=== PATIENT | female | born 1950 | race Caucasian/White ===

== ENCOUNTER → 2017-12-06 10:35 | Outpatient (CLI) | payer MEDICARE, OTHER, SELFPAY ==
--- NOTE | 2017-12-06 10:39 | MM_ITS ---
MM Dig screening mamm BI w/CAD CAD Screening COMPARISON: Digital mammograms 11/21/2016 and 11/03/2015 INDICATION: There is a history of breast cancer in patient's mother diagnosed in her 50s TECHNIQUE: Standard CC and MLO images were obtained. R2 CAD reviewed. FINDINGS: Moderate heterogenic fibroglandular densities are seen in central portions of both breasts. Again noted are benign-appearing calcifications in the right breast. There is a stable tiny oval lesion in her quadrant left breast. There is minimal arterial calcification left breast. There are no suspicious microcalcifications. IMPRESSION: Moderate breast density with no suspicious lesion seen recommend yearly follow-up BI-RADS Category: 2 Benign Finding(s) RECOMMENDED FOLLOW-UP: 1YR - 1 YEAR FOLLOW-UP (A letter has been sent to the patient regarding results of the study.)
== END ==
PROVIDERS: Family Provider Nurse Practitioner Family; PCP Nurse Practitioner Family; Visit Provider Nurse Practitioner Obstetrics & Gynecology
DX: Z12.31 Encounter for screening mammogram for malignant neoplasm of breast (principal)
CPT/HCPCS: 77067

== ENCOUNTER → 2017-12-20 11:58 | Outpatient (CLI) | payer MEDICARE, OTHER, SELFPAY ==
[2017-12-20 12:08] LABS: Microscopic, Urine URINE MICROSCOPIC (MICROSCOPIC)
[2017-12-20 12:42] LABS: Basophils # 0.1 K/mm3 (0-0.2); Basophils % 0.6 % (0.1-2.0); Eosinophils # 0.2 K/mm3 (0.0-0.4); Eosinophils % 1.4 % (0.1-12.0); Hematocrit 43.9 % (37.0-47.0); Hemoglobin 14.3 g/dL (12.2-16.2); Lymphocytes # 3.1 K/mm3 (0.7-4.5); Lymphocytes % 29.6 K/mm3 (10-50); Mean Corpuscular HGB Conc 32.6 g/dL (31.8-35.4); Mean Corpuscular Hemoglobin 30.4 pg (27.0-31.2); Mean Corpuscular Volume 93.3 fl (81-99); Mean Platelet Volume 10.5 fl (7.4-10.4); Monocytes # 0.7 K/mm3 (0.1-1.0); Monocytes % 6.2 % (1.7-9.3); Neutrophils # 6.6 K/mm3 (1.8-7.8); Neutrophils % 62.2 % (37.0-80.0); Platelet Count 213 K/mm3 (142-424); Red Blood Count 4.71 M/mm3 (4.20-5.40); Red Cell Distribution Width 14.7 % (11.5-17.5); White Blood Count 10.6 K/mm3 (4.8-10.8)
[2017-12-20 12:48] LABS: Appearance,Urine CLEAR (Clear); Bilirubin,Urine Negative (Negative); Blood, Urine 1+ (Negative); Color,Urine YELLOW (Yellow); Glucose,Urine (UA) Negative (Negative); Ketones,Urine Negative (Negative); Leukocyte Esterase,Urine 2+ (Negative); Nitrate,Urine POSITIVE (Negative); Protein,Urine Negative (Negative); Urobilinogen,Urine 0.2 EU/dl (0.2)
[2017-12-20 12:58] LABS: Creatinine,Urine Random 39 mg/dL (20-320); Total Protein,Urine Random 30.6 mg/dL (0.0-11.9)
[2017-12-20 13:05] LABS: Bacteria,Urine 3+ /lpf; WBC,Urine 50-100 #/hpf (0-3)
[2017-12-20 13:06] LABS: Mucus,Urine 1+ /lpf; Squamous Epithelial Cell,Urine Occasional #/hpf (0-5)
[2017-12-20 13:54] LABS: Albumin Level 4.2 gm/dL (3.4-5.0); Anion Gap 18.5 mEq/L (5-15); Blood Urea Nitrogen 16 mg/dL (7-18); Calcium 9.2 mg/dL (8.5-10.1); Carbon Dioxide 24 mmol/L (21.0-32.0); Chloride 98 mmol/L (98-107); Creatinine,Serum 0.96 mg/dL (0.55-1.02); Estimated Glomerular Filt Rate 58 ml/min (>60); GFR (African American) 70 ML/MIN (>60); Glucose 209 mg/dL (74-106); Phosphorous 3.7 mg/dL (2.4-4.9); Potassium 4.5 mmoL/L (3.5-5.1); Sodium 136 mmol/L (136-145)
[2017-12-21 18:27] LABS: Parathyroid Hormone Intact 56 pg/mL (15-65); Vitamin D 25 Hydroxy 11.5 ng/mL (30.0-100.0)
== END ==
PROVIDERS: PCP Nurse Practitioner Family; Visit Provider Internal Medicine Nephrology
DX: Z87.448 Personal history of other diseases of urinary system (principal); R82.90 Unspecified abnormal findings in urine
CPT/HCPCS: 36415; 80069; 81001; 82570; 82652; 83970; 84155; 85025; 87086; 87088; 87186

== ENCOUNTER → 2017-12-27 12:55 | Outpatient (POV) | payer MEDICARE, OTHER, SELFPAY | PROVIDERS: Family Provider Nurse Practitioner Family; PCP Nurse Practitioner Family; Visit Provider Internal Medicine Nephrology | DX: Z00.00 Encounter for general adult medical examination without abnormal findings (principal) ==

== ENCOUNTER → 2018-01-08 09:25 | Outpatient (CLI) | payer MEDICARE, OTHER, SELFPAY ==
--- NOTE | 2018-01-08 09:33 | US_ITS ---
US abdomen complete HISTORY: Abdominal pain and swelling ITS.REASON: ABDOMINAL PAIN,ACUTE KIDNEY INJURY ORDERING PHYSICIAN: Haim Walter PATIENT AGE: 67 years COMPARISON: None FINDINGS: PANCREAS:Unremarkable. No obvious mass or abnormal fluid collection. No ductal dilatation LIVER:Mild fatty liver. No focal liver lesion or biliary dilatation. There is appropriate direction of blood flow within the portal vein with no evidence of portal vein dilatation. RIGHT KIDNEY:Mild cortical thinning superiorly. No hydronephrosis LEFT KIDNEY:2 cm left renal cyst otherwise negative. Left kidney GALLBLADDER:Status post cholecystectomy. No ductal dilatation AORTA:No evidence of aneurysmal dilatation. SPLEEN:Upper limits of normal in size at 13 cm ASCITES:None demonstrated. IMPRESSION: 1. Fatty liver. 2. Mild right renal cortical thinning with small left renal cyst. 3. Borderline splenomegaly
== END ==
PROVIDERS: Family Provider Nurse Practitioner Family; PCP Nurse Practitioner Family; Visit Provider Internal Medicine Nephrology
DX: R19.8 Other specified symptoms and signs involving the digestive system and abdomen (principal)
CPT/HCPCS: 76700

== ENCOUNTER → 2018-04-30 08:43 | Outpatient (REF) | payer MEDICARE, OTHER, SELFPAY ==
[2018-04-30 13:31] LABS: Basophils # 0.1 K/mm3 (0-0.2); Basophils % 0.8 % (0.1-2.0); Eosinophils # 0.1 K/mm3 (0.0-0.4); Eosinophils % 1.8 % (0.1-12.0); Hematocrit 46.7 % (37.0-47.0); Hemoglobin 14.6 g/dL (12.2-16.2); Lymphocytes # 2.5 K/mm3 (0.7-4.5); Lymphocytes % 35.6 K/mm3 (10-50); Mean Corpuscular HGB Conc 31.3 g/dL (31.8-35.4); Mean Corpuscular Hemoglobin 29.3 pg (27.0-31.2); Mean Corpuscular Volume 93.7 fl (81-99); Mean Platelet Volume 9.2 fl (7.4-10.4); Monocytes # 0.5 K/mm3 (0.1-1.0); Monocytes % 6.5 % (1.7-9.3); Neutrophils # 3.9 K/mm3 (1.8-7.8); Neutrophils % 55.4 % (37.0-80.0); Platelet Count 235 K/mm3 (142-424); Red Blood Count 4.98 M/mm3 (4.20-5.40); Red Cell Distribution Width 14.6 % (11.5-17.5)
[2018-04-30 14:06] LABS: Alanine Aminotransferase 26 U/L (12-78); Albumin Level 4.3 gm/dL (3.4-5.0); Albumin/Globulin Ratio 1.2 (1.1-1.8); Alkaline Phosphatase 105 U/L (46-116); Anion Gap 14.5 mEq/L (5-15); Aspartate Amino Transferase 20 U/L (15-37); Bilirubin,Total 0.4 mg/dL (0.2-1.0); Blood Urea Nitrogen 16 mg/dL (7-18); Calcium 9.6 mg/dL (8.5-10.1); Carbon Dioxide 27 mmol/L (21.0-32.0); Chloride 100 mmol/L (98-107); Chol/HDL Ratio 10.8 (1-3.5); Cholesterol 432 mg/dL (140-200); Creatinine,Serum 1.01 mg/dL (0.55-1.02); Estimated Glomerular Filt Rate 55 ml/min (>60); Free T4 (Free Thyroxine) 1.04 ng/dl (0.76-1.46); GFR (African American) 66 ML/MIN (>60); Globulin 3.6 gm/dl (1.3-3.2); Glucose 248 mg/dL (74-106); HDL Cholesterol 40 mg/dL (29-89); Potassium 4.5 mmoL/L (3.5-5.1); Sodium 137 mmol/L (136-145); Thyroid Stimulating Hormone 2.35 uIU/ml (0.358-3.740); Total Protein,Serum 7.9 gm/dL (6.4-8.2)
[2018-04-30 14:08] LABS: Triglycerides 935 mg/dL (30-200)
[2018-04-30 15:47] LABS: Hemoglobin A1C 7.7 % (0.0-7.0)
[2018-05-01 11:22] LABS: Creatinine, Urine 26.5 mg/dL (Not Estab.)
[2018-05-02 06:29] LABS: Vitamin D 25 Hydroxy 11.2 ng/mL (30.0-100.0)
== END ==
LOC: LAB 08:43
PROVIDERS: Visit Provider Nurse Practitioner Family
DX: E11.9 Type 2 diabetes mellitus without complications (principal); R53.83 Other fatigue
CPT/HCPCS: 80053; 80061; 82043; 82570; 82652; 83036; 84439; 84443; 85025

== ENCOUNTER → 2018-06-24 12:31 | Outpatient (CLI) | payer MEDICARE, OTHER, SELFPAY ==
[2018-06-24 12:38] LABS: Microscopic, Urine URINE MICROSCOPIC (MICROSCOPIC)
[2018-06-24 12:52] LABS: Basophils # 0.1 K/mm3 (0-0.2); Basophils % 0.5 % (0.1-2.0); Eosinophils # 0.3 K/mm3 (0.0-0.4); Eosinophils % 2.8 % (0.1-12.0); Hematocrit 39.1 % (37.0-47.0); Hemoglobin 12.9 g/dL (12.2-16.2); Mean Corpuscular HGB Conc 32.9 g/dL (31.8-35.4); Mean Corpuscular Hemoglobin 30.4 pg (27.0-31.2); Mean Corpuscular Volume 92.4 fl (81-99); Mean Platelet Volume 7.5 fl (7.4-10.4); Monocytes # 0.6 K/mm3 (0.1-1.0); Monocytes % 6.2 % (1.7-9.3); Neutrophils # 5.2 K/mm3 (1.8-7.8); Neutrophils % 57.6 % (37.0-80.0); Platelet Count 287 K/mm3 (142-424); Red Blood Count 4.24 M/mm3 (4.20-5.40); Red Cell Distribution Width 15.4 % (11.5-17.5)
[2018-06-24 13:11] LABS: Appearance,Urine CLOUDY (Clear); Bilirubin,Urine Negative (Negative); Blood, Urine TRACE-L (Negative); Color,Urine YELLOW (Yellow); Glucose,Urine (UA) Negative (Negative); Ketones,Urine Negative (Negative); Leukocyte Esterase,Urine 3+ (Negative); Nitrate,Urine POSITIVE (Negative); Protein,Urine Negative (Negative); Specific Gravity, Urine <= 1.005 (1.005-1.030); Urobilinogen,Urine 0.2 EU/dl (0.2)
[2018-06-24 13:17] LABS: Bacteria,Urine 4+ /lpf; Squamous Epithelial Cell,Urine Occasional #/hpf (0-5); WBC,Urine 20-50 #/hpf (0-3)
[2018-06-24 13:59] LABS: Albumin Level 4.2 gm/dL (3.4-5.0); Anion Gap 15.8 mEq/L (5-15); Blood Urea Nitrogen 18 mg/dL (7-18); Carbon Dioxide 27 mmol/L (21.0-32.0); Chloride 102 mmol/L (98-107); Creatinine,Serum 1.13 mg/dL (0.55-1.02); Estimated Glomerular Filt Rate 48 ml/min (>60); GFR (African American) 58 ML/MIN (>60); Glucose 147 mg/dL (74-106); Phosphorous 4.8 mg/dL (2.4-4.9); Potassium 4.8 mmoL/L (3.5-5.1); Sodium 140 mmol/L (136-145); Uric Acid 3.3 mg/dL (2.6-7.2)
[2018-06-24 14:12] LABS: Creatinine,Urine Random 21 mg/dL (20-320); Total Protein,Urine Random 17.5 mg/dL (0.0-11.9)
[2018-06-26 16:50] LABS: Vitamin D 25 Hydroxy 29.1 ng/mL (30.0-100.0)
== END ==
PROVIDERS: Visit Provider Internal Medicine Nephrology
DX: N17.9 Acute kidney failure, unspecified (principal); N18.2 Chronic kidney disease, stage 2 (mild); R82.90 Unspecified abnormal findings in urine
CPT/HCPCS: 36415; 80069; 81001; 82570; 82652; 84155; 84550; 85025; 87086; 87088; 87186

== ENCOUNTER → 2018-06-27 13:13 | Outpatient (POV) | payer MEDICARE, OTHER, SELFPAY | PROVIDERS: Family Provider Nurse Practitioner Family; PCP Nurse Practitioner Family; Visit Provider Internal Medicine Nephrology | DX: Z00.00 Encounter for general adult medical examination without abnormal findings (principal) ==

== ENCOUNTER → 2018-08-23 10:57 | Outpatient (POV) | payer MEDICARE, OTHER, SELFPAY | PROVIDERS: Visit Provider Podiatrist | DX: Z00.00 Encounter for general adult medical examination without abnormal findings (principal) ==

== ENCOUNTER → 2018-11-14 13:37 | Outpatient (CLI) | payer MEDICARE, OTHER, SELFPAY ==
[2018-11-14 14:46] LABS: Alanine Aminotransferase 20 U/L (12-78); Albumin Level 4.2 gm/dL (3.4-5.0); Albumin/Globulin Ratio 1.2 (1.1-1.8); Alkaline Phosphatase 95 U/L (46-116); Anion Gap 17.3 mEq/L (5-15); Aspartate Amino Transferase 4 U/L (15-37); Bilirubin,Total 0.4 mg/dL (0.2-1.0); Blood Urea Nitrogen 19 mg/dL (7-18); Calcium 9.3 mg/dL (8.5-10.1); Carbon Dioxide 23 mmol/L (21.0-32.0); Chloride 96 mmol/L (98-107); Cholesterol 419 mg/dL (140-200); Creatinine,Serum 0.94 mg/dL (0.55-1.02); Estimated Glomerular Filt Rate 59 ml/min (>60); Free T4 (Free Thyroxine) 1.12 ng/dl (0.76-1.46); GFR (African American) 72 ML/MIN (>60); Globulin 3.6 gm/dl (1.3-3.2); Glucose 298 mg/dL (74-106); HDL Cholesterol 42 mg/dL (29-89); Potassium 4.3 mmoL/L (3.5-5.1); Sodium 132 mmol/L (136-145); Thyroid Stimulating Hormone 0.85 uIU/ml (0.358-3.740); Total Protein,Serum 7.8 gm/dL (6.4-8.2)
[2018-11-14 14:50] LABS: Triglycerides 992 mg/dL (30-200)
[2018-11-14 16:12] LABS: Basophils # 0.1 K/mm3 (0-0.2); Basophils % 0.8 % (0.1-2.0); Eosinophils # 0.1 K/mm3 (0.0-0.4); Hematocrit 44.7 % (37.0-47.0); Hemoglobin 14.5 g/dL (12.2-16.2); Lymphocytes # 3.1 K/mm3 (0.7-4.5); Lymphocytes % 36.6 % (10-50); Mean Corpuscular HGB Conc 32.5 g/dL (31.8-35.4); Mean Corpuscular Hemoglobin 30.2 pg (27.0-31.2); Mean Corpuscular Volume 92.9 fl (81-99); Mean Platelet Volume 10.7 fl (7.4-10.4); Monocytes # 0.6 K/mm3 (0.1-1.0); Monocytes % 6.8 % (1.7-9.3); Neutrophils # 4.7 K/mm3 (1.8-7.8); Neutrophils % 54.8 % (37.0-80.0); Platelet Count 239 K/mm3 (142-424); Red Blood Count 4.81 M/mm3 (4.20-5.40); Red Cell Distribution Width 14.3 % (11.5-17.5); White Blood Count 8.5 K/mm3 (4.8-10.8)
[2018-11-14 19:42] LABS: Hemoglobin A1C 10.3 % (0.0-7.0)
== END ==
PROVIDERS: Visit Provider Nurse Practitioner Family
DX: E11.9 Type 2 diabetes mellitus without complications (principal)
CPT/HCPCS: 80053; 80061; 83036; 84439; 84443; 85025

== ENCOUNTER → 2018-12-12 09:10 | Outpatient (CLI) | payer MEDICARE, OTHER, SELFPAY ==
--- NOTE | 2018-12-12 09:14 | MM_ITS ---
MM Dig screening mamm BI w/CAD CAD Screening COMPARISON: Digital mammograms with CAD 12/06/2017 and 11/21/2016 INDICATION: There is a history of breast cancer patient's mother diagnosed at age 50 TECHNIQUE: Standard CC and MLO images were obtained. R2 CAD reviewed. FINDINGS: Moderate diffuse somewhat heterogenic fibroglandular densities are seen in the central portions of both breasts there are few scattered benign-appearing calcifications in the right breast and there is minimal arterial calcification in each breast. There is no suspicious lesion and there are no suspicious microcalcifications. IMPRESSION: Moderate diffuse breast density with no suspicious lesion seen BI-RADS Category: 2 Benign Finding(s) RECOMMENDED FOLLOW-UP: 1YR - 1 YEAR FOLLOW-UP (A letter has been sent to the patient regarding results of the study.)
== END ==
PROVIDERS: PCP Nurse Practitioner Family; Visit Provider Nurse Practitioner Obstetrics & Gynecology
DX: Z12.31 Encounter for screening mammogram for malignant neoplasm of breast (principal)
CPT/HCPCS: 77067

== ENCOUNTER → 2018-12-30 10:10 | Outpatient (CLI) | payer MEDICARE, OTHER, SELFPAY ==
[2018-12-30 10:15] LABS: Microscopic, Urine URINE MICROSCOPIC (MICROSCOPIC)
[2018-12-30 10:32] LABS: Basophils % 0.5 % (0.1-2.0); Eosinophils # 0.1 K/mm3 (0.0-0.4); Eosinophils % 1.1 % (0.1-12.0); Hematocrit 43.2 % (37.0-47.0); Hemoglobin 14.2 g/dL (12.2-16.2); Lymphocytes # 3.1 K/mm3 (0.7-4.5); Lymphocytes % 37.1 % (10-50); Mean Corpuscular HGB Conc 32.9 g/dL (31.8-35.4); Mean Corpuscular Hemoglobin 30.1 pg (27.0-31.2); Mean Corpuscular Volume 91.5 fl (81-99); Mean Platelet Volume 7.8 fl (7.4-10.4); Monocytes # 0.4 K/mm3 (0.1-1.0); Monocytes % 5.3 % (1.7-9.3); Neutrophils # 4.6 K/mm3 (1.8-7.8); Platelet Count 246 K/mm3 (142-424); Red Blood Count 4.72 M/mm3 (4.20-5.40); Red Cell Distribution Width 14.1 % (11.5-17.5); White Blood Count 8.2 K/mm3 (4.8-10.8)
[2018-12-30 10:42] LABS: Appearance,Urine SL CLOUDY (Clear); Bilirubin,Urine Negative (Negative); Blood, Urine TRACE-I (Negative); Color,Urine YELLOW (Yellow); Glucose,Urine (UA) Negative (Negative); Ketones,Urine Negative (Negative); Leukocyte Esterase,Urine 1+ (Negative); Nitrate,Urine POSITIVE (Negative); PH,Urine 5.5 (5.0-8.5); Protein,Urine Negative (Negative); Urobilinogen,Urine 0.2 EU/dl (0.2)
[2018-12-30 10:48] LABS: Creatinine,Urine Random 34 mg/dL (20-320); Total Protein,Urine Random 14.4 mg/dL (0.0-11.9); WBC,Urine 20-50 #/hpf (0-3)
[2018-12-30 10:49] LABS: Bacteria,Urine 4+ /lpf; Squamous Epithelial Cell,Urine Occasional #/hpf (0-5)
[2018-12-30 11:36] LABS: Blood Urea Nitrogen 14 mg/dL (7-18); Calcium 9.6 mg/dL (8.5-10.1); Carbon Dioxide 24 mmol/L (21.0-32.0); Chloride 98 mmol/L (98-107); Creatinine,Serum 1.03 mg/dL (0.55-1.02); Estimated Glomerular Filt Rate 53 ml/min (>60); GFR (African American) 64 ML/MIN (>60); Glucose 211 mg/dL (74-106); Phosphorous 3.9 mg/dL (2.4-4.9); Sodium 136 mmol/L (136-145)
== END ==
PROVIDERS: Visit Provider Internal Medicine Nephrology
DX: N18.2 Chronic kidney disease, stage 2 (mild) (principal); R82.90 Unspecified abnormal findings in urine
CPT/HCPCS: 36415; 80069; 81001; 82570; 84155; 85025; 87086; 87088; 87186

== ENCOUNTER → 2019-01-13 13:28 | Outpatient (POV) | payer MEDICARE, OTHER, SELFPAY | PROVIDERS: Visit Provider Internal Medicine Nephrology | DX: Z00.00 Encounter for general adult medical examination without abnormal findings (principal) ==

== ENCOUNTER 2019-03-17 16:58 | Observation (INO) ==
--- NOTE | 2019-03-17 17:30 | Emergency Department Note ---
ED Disposition Clinical Impression: UTI (urinary tract infection) Disposition: Admitted as Observation Condition on Discharge: Good Time of Disposition: 18:49 - Critical Care Critical Care Time: No Attestation: On 03/17/19, the high probability of a clinically significant, sudden or life threatening deterioration of the following system(s) required my full and direct attention, intervention and personal management. The time I documented below is in addition to time spent performing reported procedures but includes the following listed in this critical care notation. Medical Decision Making - Medical Records Medical records reviewed: Yes: I reviewed the patient's medical records. - Kev Inquiry Pt receiving controlled substance: No Kev was queried for this patient: No Vital Signs: 03/17/19 17:04 03/17/19 17:59 03/17/19 18:00 Temperature 97.9 F Temperature Source Oral Pulse Rate Pulse Rate [Right Brachial] 94 H 83 83 Respiratory Rate 24 18 16 Blood Pressure Blood Pressure [Right Arm] 192/98 H 157/70 H 150/77 H Blood Pressure Mean [Right Arm] 129 99 101 Blood Pressure Source Blood Pressure Source [Right Arm] Automatic Cuff Automatic Cuff Automatic Cuff Blood Pressure Position Blood Pressure Position [Right Arm] Sitting Supine Supine 02 Sat by Pulse Oximetry 98 96 96 Oxygen Delivery Method Room Air Room Air Room Air 03/17/19 18:39 Temperature 97.8 F Temperature Source Temporal Artery Scan Pulse Rate 79 Pulse Rate [Right Brachial] Respiratory Rate 24 Blood Pressure 169/86 H Blood Pressure [Right Arm] Blood Pressure Mean [Right Arm] Blood Pressure Source Automatic Cuff Blood Pressure Source [Right Arm] Blood Pressure Position Sitting Blood Pressure Position [Right Arm] 02 Sat by Pulse Oximetry Oxygen Delivery Method Room Air - Lab Data Lab results reviewed: Yes: I reviewed the patient's lab results. Lab Results 03/17/19 17:20: WBC 10.5, RBC 4.72, Hgb 13.8, Hct 41.5, MCV 88.0, MCH 29.3, MCHC 33.3, RDW 13.6, Plt Count 295, MPV 7.9, Neut % (Auto) 68.7, Lymph % (Auto) 24.4, [place] % (Auto) 6.0, Eos % (Auto) 0.6, Baso % (Auto) 0.2, Neut # (Auto) 7.2, Lymph # (Auto) 2.6, [place] # (Auto) 0.6, Eos # (Auto) 0.1, Baso # (Auto) 0.0 03/17/19 17:20: Sodium 128 L, Potassium 4.3, Chloride 91 L, Carbon Dioxide 24, Anion Gap 17.3 H, BUN 14, Creatinine 1.10 H, Estimated Creat Clear 49, Estimated GFR 49 L, Est GFR ( Amer) 60, Glucose 289 H, Calcium 9.7, Total Bilirubin 0.5, AST 5 L, ALT 15, Alkaline Phosphatase 108, Troponin I < 0.02, Total Protein 8.7 H, Albumin 3.8, Globulin 4.9 H, Albumin/Globulin Ratio 0.8 L 03/17/19 17:20: Lactate 0.9 03/17/19 17:30: Urine Color Yellow, Urine Appearance Clear, Urine pH 5.0, Ur Specific [place] 1.015, Urine Protein Negative, Urine Glucose (UA) 1+, Urine Ketones Negative, Urine Blood 1+, Urine Nitrate Positive, Urine Bilirubin Negative, Urine Urobilinogen 0.2, Ur Leukocyte Esterase 1+ A, Urine WBC 3-5, Ur Squamous Epith Cells Occasional, Urine Mucus 1+ Result diagrams: 03/17/19 17:20 03/17/19 17:20 Orders (Tests/Meds): ED MEDICATIONS Generic Name Dose Route Start Last Admin Trade Name Walt PRN Reason Stop Dose Admin Ertapenem 1 gm/ Sodium 50 mls @ 100 mls/hr 03/17/19 18:15 03/17/19 18:11 Chloride IV 03/31/19 18:14 100 mls/hr Q24H ROSA Administration Protocol ORDERS Category Date Time Status XR chest portable Stat Exams 03/17/19 17:12 Taken Blood Culture Stat Micro 03/17/19 17:20 Received - Physician Consults Physician Consulted: yvon Time: 18:02 Reason -: Admission General Adult HPI - General Chief complaint: Abdominal Pain Stated complaint: Poss kidney infection Time Seen by Provider: 03/17/19 17:28 Mode of Arrival: Ambulatory Source of Information: Patient Limitations: No Limitations Description of Symptoms (Recalled from ER Triage Doc. by RN): sent by for ev al for uroseptic work up - History of Present Illness HPI narrative: SAw Dr. Perez, got sick today. found to have UTI, sent to hospital because of history of EBSL E. Coli cystitis - Related Data Home Medications Medication Instructions Recorded Confirmed cyanocobalamin (vit B-12) 1,000 1,000 mcg PO ONCE 06/11/18 03/17/19 mcg tablet Amlodipine Besylate [Norvasc 5mg 10 mg PO DAILY 03/17/19 tablet] Aspirin [Low Dose Aspirin EC] 81 mg PO DAILY 03/17/19 Blood Sugar Diagnostic [Premier 0 1000units .ROUTE .MEDSUPPLY 03/17/19 Test Strip] Blood-Glucose Meter [Contour Link] 1 tab .ROUTE .MEDSUPPLY 03/17/19 Cholecalciferol (Vitamin D3) 5,000 unit PO DAILY 03/17/19 [Vitamin D3] Ergocalciferol (Vitamin D2) 50,000 unit PO QWEEK 03/17/19 [Drisdol] Linagliptin [Tradjenta] 5 mg PO DAILY 03/17/19 Lisinopril [Lisinopril 40mg Tablet] 40 mg PO QDAY 03/17/19 Metformin HCl [Glucophage] 500 mg PO DAILY 03/17/19 Metoprolol Succinate 25 mg PO DAILY 03/17/19 Simvastatin 5 mg PO QHS 03/17/19 Allergies Allergy/AdvReac Type Severity Reaction Status Date / Time albuterol [ALBUTEROL] Allergy Unknown Verified 03/17/19 16:25 enalapril [ENALAPRIL] Allergy Unknown Verified 03/17/19 16:25 fluticasone [FLUTICASONE] Allergy Unknown Verified 03/17/19 16:25 lorazepam [LORAZEPAM] Allergy Unknown Verified 03/17/19 16:25 propranolol [PROPRANOLOL] Allergy Unknown Verified 03/17/19 16:25 [facility] History - Hepatitis A Screen Drug use history?: No High risk sexual behaviors?: No History of sexually transmitted infection?: No Currently employed?: No Childcare worker?: No Do you have indoor plumbing?: Yes Do you have electricity?: Yes Attestation statement:: This patient has been screened for Hepatitis A risk factors. I have reviewed the patient's past medical history: Yes Medical History: Reports:: Diabetes Mellitus Type 2, Hypertension Other Medical History: Reports: Arthritis Other Surgeries: Yes: Cholecystectomy, Colonoscopy, Tubal Ligation Amputation: No Fractures: No Comment: bladder surgery (slings) - Social History Educational Level: Completed High School Smoking Status: Current every day smoker Tobacco Type: cigarettes # Packs/Day (cigarettes): 2 Alcohol Intake: never Alcohol Intake Frequency:: other Substance Use Type: denies use Occupational Status: retired Housing: house Household Members: spouse - Psychiatric History Expresses thoughts of harming self/others: None Suicide Plan Description: No Plan Family Hx:: Cancer, Heart Attack ROS Obtained: Yes All systems reviewed & no additional complaints - Constitutional Constitutional: Reports chills, Reports malaise - Eyes Eyes: Denies system reviewed and no additional complaints, except as docu, Denies change in vision - ENT Ears, Nose, Mouth, and Throat: Denies sinus pressure, Denies sore throat, Denies vertigo/dizziness - Cardiovascular Cardiovascular: Denies chest pain at rest - Respiratory Respiratory: No chest congestion, No cough, No dyspnea, No dyspnea on exertion - Gastrointestinal Gastrointestingal: Reports: system reviewed and no additional complaints, except as docu, abdominal pain. Denies: vomiting - Genitourinary Female Genitourinary: Reports flank pain - Musculoskeletal Musculoskeletal: Denies joint stiffness, Denies joint swelling, Denies muscle weakness - Integumentary/Breasts Skin/Breast: Denies rash, Denies skin pain - Neurologic Neurologic: Denies abnormal gait, Denies abnormal speech, Denies confusion - Hematologic/Lymphatic Henatologic/Lymphatic: Denies easy bleeding, Denies easy bruising Physical Exam - General General appearance: alert, in no apparent distress - Head Head exam: atraumatic, normocephalic, normal inspection - Eye Eye exam: Present: normal appearance, PERRL, EOMI - ENT ENT exam: Present: normal exam, normal oropharynx, mucous membranes moist, TM's normal bilaterally, normal external ear exam - Neck Neck exam: Present: normal inspection, full ROM, trachea midline. Absent: meningismus, lymphadenopathy - Respiratory Respiratory exam: Present: normal lung sounds bilaterally. Absent: respiratory distress - Cardiovascular Cardiovascular exam: Present: regular rate, normal rhythm. Absent: JVD - Abdominal Exam Abdominal exam: Present: soft, normal bowel sounds. Absent: distention, tenderness, guarding - Extremities Exam Extremities exam: Present: normal inspection, full ROM, normal capillary refill. Absent: calf tenderness - Back Exam Back exam: Present: normal inspection. Absent: tenderness - Neurological Exam Neurological exam: Present: alert, oriented X3 - Psychiatric Psychiatric exam: Present: normal affect, normal mood - Skin Skin exam: Present: warm, dry, intact, normal color
[2019-03-17 17:47] LABS: Alanine Aminotransferase 15 U/L (12-78); Albumin Level 3.8 gm/dL (3.4-5.0); Albumin/Globulin Ratio 0.8 (1.1-1.8); Alkaline Phosphatase 108 U/L (46-116); Anion Gap 17.3 mEq/L (5-15); Aspartate Amino Transferase 5 U/L (15-37); Bilirubin,Total 0.5 mg/dL (0.2-1.0); Blood Urea Nitrogen 14 mg/dL (7-18); Calcium 9.7 mg/dL (8.5-10.1); Carbon Dioxide 24 mmol/L (21.0-32.0); Chloride 91 mmol/L (98-107); Globulin 4.9 gm/dl (1.3-3.2); Glucose 289 mg/dL (74-106); Potassium 4.3 mmoL/L (3.5-5.1); Sodium 128 mmol/L (136-145); Total Protein,Serum 8.7 gm/dL (6.4-8.2)
[2019-03-17 17:49] LABS: Microscopic, Urine URINE MICROSCOPIC (MICROSCOPIC)
[2019-03-17 17:50] LABS: Basophils % 0.2 % (0.1-2.0); Eosinophils # 0.1 K/mm3 (0.0-0.4); Eosinophils % 0.6 % (0.1-12.0); Hematocrit 41.5 % (37.0-47.0); Hemoglobin 13.8 g/dL (12.2-16.2); Lymphocytes # 2.6 K/mm3 (0.7-4.5); Lymphocytes % 24.4 % (10-50); Mean Corpuscular HGB Conc 33.3 g/dL (31.8-35.4); Mean Corpuscular Hemoglobin 29.3 pg (27.0-31.2); Mean Platelet Volume 7.9 fl (7.4-10.4); Monocytes # 0.6 K/mm3 (0.1-1.0); Neutrophils # 7.2 K/mm3 (1.8-7.8); Neutrophils % 68.7 % (37.0-80.0); Platelet Count 295 K/mm3 (142-424); Red Blood Count 4.72 M/mm3 (4.20-5.40); Red Cell Distribution Width 13.6 % (11.5-17.5); White Blood Count 10.5 K/mm3 (4.8-10.8)
[2019-03-17 17:50] LABS: Appearance,Urine CLEAR (Clear); Bilirubin,Urine Negative (Negative); Blood, Urine 1+ (Negative); Color,Urine YELLOW (Yellow); Glucose,Urine (UA) 1+ (Negative); Ketones,Urine Negative (Negative); Leukocyte Esterase,Urine 1+ (Negative); Protein,Urine Negative (Negative); Specific Gravity, Urine 1.015 (1.005-1.030); Urobilinogen,Urine 0.2 EU/dl (0.2)
[2019-03-17 18:15] LABS: Mucus,Urine 1+ /lpf
[2019-03-17 18:16] LABS: Squamous Epithelial Cell,Urine Occasional #/hpf (0-5)
[2019-03-18 07:01] LABS: Basophils % 0.4 % (0.1-2.0); Eosinophils # 0.1 K/mm3 (0.0-0.4); Eosinophils % 0.7 % (0.1-12.0); Hematocrit 37.2 % (37.0-47.0); Hemoglobin 12.5 g/dL (12.2-16.2); Lymphocytes # 2.7 K/mm3 (0.7-4.5); Mean Corpuscular HGB Conc 33.5 g/dL (31.8-35.4); Mean Corpuscular Hemoglobin 29.8 pg (27.0-31.2); Mean Platelet Volume 7.9 fl (7.4-10.4); Monocytes # 0.6 K/mm3 (0.1-1.0); Monocytes % 6.6 % (1.7-9.3); Neutrophils # 5.5 K/mm3 (1.8-7.8); Neutrophils % 62.3 % (37.0-80.0); Platelet Count 258 K/mm3 (142-424); Red Blood Count 4.18 M/mm3 (4.20-5.40); Red Cell Distribution Width 13.7 % (11.5-17.5); White Blood Count 8.9 K/mm3 (4.8-10.8)
[2019-03-18 07:03] LABS: Anion Gap 12.3 mEq/L (5-15); Calcium 9.8 mg/dL (8.5-10.1); Potassium 5.3 mmoL/L (3.5-5.1)
--- NOTE | 2019-03-18 07:26 | Pharmacy Consult Notes ---
[facility] Pharm[facility] VTE Monitoring - Patient Demographics Admission date: 03/17/19 Report Date: 03/18/19 Time: 07:26 Allergies/Adverse Reactions: Patient Allergies albuterol [ALBUTEROL] Allergy (Unknown, Verified 03/17/19 16:25) enalapril [ENALAPRIL] Allergy (Unknown, Verified 03/17/19 16:25) fluticasone [FLUTICASONE] Allergy (Unknown, Verified 03/17/19 16:25) lorazepam [LORAZEPAM] Allergy (Unknown, Verified 03/17/19 16:25) propranolol [PROPRANOLOL] Allergy (Unknown, Verified 03/17/19 16:25) Height: 1.63 m Weight: 61.802 kg Patient Problems: Current Active Problems (Updated 03/17/19 @ 18:49 by Ramiro Haddad MD) UTI (urinary tract infection) (Acute) - VTE Risk Labs: VTE Related Lab Results Hgb 12.5 g/dL (12.2-16.2) 03/18/19 06:25 Hct 37.2 % (37.0-47.0) 03/18/19 06:25 Plt Count 258 K/mm3 (142-424) 03/18/19 06:25 BUN 12 mg/dL (7-18) 03/18/19 06:25 Creatinine 1.07 mg/dL (0.55-1.02) H 03/18/19 06:25 Estimated Creat Clear 49 mL/min (50-200) 03/18/19 06:25 Was VTE Risk Assessment Performed: Yes VTE Score: 3 VTE Risk Level: Low Risk Clinical Trial Participant: No - Prophylaxis VTE Prophylaxis Ordered?: Yes Types of VTE Prophylaxis: TEDS Knee High Location of Applied Device: Not Applicable
--- NOTE | 2019-03-18 09:35 | History & Physical Report ---
*Admission Date: 03/17/19 *Chief complaint: uti *History of present illness: 68-year-old female presents for generalized weakness and fatigue. Patient showed up at the doctor's office yesterday complaining she did not feel good. UA was positive patient has a history of ESBL bacteremia patient was admitted c ultures obtained and IV antibiotics initiated. [facility] History I have reviewed the patient's past medical history: Yes Medical History: Reports:: Diabetes Mellitus Type 2, Hypertension *Have you ever received a pneumonia vaccine?: Yes *Have you received a flu vaccine this season?: Yes Other Medical History: Reports: Arthritis Other Surgeries: Yes: Cholecystectomy, Colonoscopy, Tubal Ligation Amputation: No Fractures: No - *Social History Educational Level: Completed Grade School Smoking Status: Current every day smoker Tobacco Type: cigarettes # Packs/Day (cigarettes): 1 Alcohol Intake: never Alcohol Intake Frequency:: other Substance Use Type: denies use *Occupational Status:: retired Housing: house Household Members: spouse *Travel in the last 8 weeks: None - Psychiatric History Expresses thoughts of harming self/others: None Suicide Plan Description: No Plan Family Hx:: Cancer, Heart Attack Review of Systems - Review of Systems Review of systems:: pertinent systems reviewed and negative unless documented below - Constitutional Reports malaise, Reports weakness, Denies fever(s) - Eyes Denies change in vision - ENT Denies change in voice, Denies nasal obstruction - *Cardiovascular Denies chest pain with activity, Denies shortness of breath - *Respiratory Denies cough - *Gastrointestinal Denies change in bowel habits, Denies loose stools - *Genitourinary Reports urinary incontinence, Reports urinary urgency - *Musculoskeletal Reports muscle weakness, Denies back pain - Integumentary/Breasts Denies bleeding lesions, Denies rash - *Neurologic Denies abnormal walking, Denies abnormal speech, Denies confusion, Denies dizziness - Psychiatric Denies lack of enjoyment, Denies anxiety - Endocrine Denies flushing - Hematologic/Lymphatic Denies enlarged lymph nodes - Allergic/Immunologic Denies hives Meds Home Medications Medication Instructions Recorded Confirmed Type cyanocobalamin (vit B-12) 1,000 1,000 mcg PO ONCE 06/11/18 03/18/19 History mcg tablet Aspirin [Low Dose Aspirin EC] 81 mg PO DAILY 03/17/19 03/18/19 History Cholecalciferol (Vitamin D3) 5,000 unit PO DAILY 03/17/19 03/18/19 History [Vitamin D3] Ergocalciferol (Vitamin D2) 50,000 unit PO QWEEK 03/17/19 03/18/19 History [Drisdol] Linagliptin [Tradjenta] 5 mg PO DAILY 03/17/19 03/18/19 History Lisinopril [Lisinopril 40mg Tablet] 40 mg PO DAILY 03/17/19 03/18/19 History Metformin HCl [Glucophage] 500 mg PO DAILY 03/17/19 03/18/19 History Metoprolol Succinate 25 mg PO DAILY 03/17/19 03/18/19 History Amlodipine Besylate 10 mg PO DAILY 03/18/19 03/18/19 History Simvastatin 5 mg PO HS 03/18/19 03/18/19 History Allergies Allergy/AdvReac Type Severity Reaction Status Date / Time albuterol [ALBUTEROL] Allergy Unknown Verified 03/17/19 16:25 enalapril [ENALAPRIL] Allergy Unknown Verified 03/17/19 16:25 fluticasone [FLUTICASONE] Allergy Unknown Verified 03/17/19 16:25 lorazepam [LORAZEPAM] Allergy Unknown Verified 03/17/19 16:25 propranolol [PROPRANOLOL] Allergy Unknown Verified 03/17/19 16:25 Exam Vital signs and Labs for Last 24 Hours: Temp Pulse Resp BP Pulse Ox 98.5 F 83 15 154/62 H 96 03/18/19 08:00 03/18/19 08:00 03/18/19 08:00 03/18/19 08:00 03/18/19 08:00 Laboratory Results - last 24 hr 03/17/19 17:20: WBC 10.5, RBC 4.72, Hgb 13.8, Hct 41.5, MCV 88.0, MCH 29.3, MCHC 33.3, RDW 13.6, Plt Count 295, MPV 7.9, Neut % (Auto) 68.7, Lymph % (Auto) 24 .4, [place] % (Auto) 6.0, Eos % (Auto) 0.6, Baso % (Auto) 0.2, Neut # (Auto) 7.2, Lymph # (Auto) 2.6, Gregory # (Auto) 0.6, Eos # (Auto) 0.1, Baso # (Auto) 0.0 03/17/19 17:20: Sodium 128 L, Potassium 4.3, Chloride 91 L, Carbon Dioxide 24, Anion Gap 17.3 H, BUN 14, Creatinine 1.10 H, Estimated Creat Clear 49, Estimated GFR 49 L, Est GFR ( Amer) 60, Glucose 289 H, Calcium 9.7, Total Bilirubin 0.5, AST 5 L, ALT 15, Alkaline Phosphatase 108, Troponin I < 0.02, Total Protein 8.7 H, Albumin 3.8, Globulin 4.9 H, Albumin/Globulin Ratio 0.8 L 03/17/19 17:20: Lactate 0.9 03/17/19 17:30: Urine Color Yellow, Urine Appearance Clear, Urine pH 5.0, Ur Specific [place] 1.015, Urine Protein Negative, Urine Glucose (UA) 1+, Urine Ke tones Negative, Urine Blood 1+, Urine Nitrate Positive, Urine Bilirubin Negative, Urine Urobilinogen 0.2, Ur Leukocyte Esterase 1+ A, Urine WBC 3-5, Ur Squamous Epith Cells Occasional, Urine Mucus 1+ 03/18/19 06:25: WBC 8.9, RBC 4.18 L, Hgb 12.5, Hct 37.2, MCV 89.0, MCH 29.8, MCHC 33.5, RDW 13.7, Plt Count 258, MPV 7.9, Neut % (Auto) 62.3, Lymph % (Auto) 30.0, Gregory % (Auto) 6.6, Eos % (Auto) 0.7, Baso % (Auto) 0.4, Neut # (Auto) 5.5, Lymph # (Auto) 2.7, Gregory # (Auto) 0.6, Eos # (Auto) 0.1, Baso # (Auto) 0.0 03/18/19 06:25: Sodium 133 L, Potassium 5.3 H D, Chloride 98, Carbon Dioxide 28, Anion Gap 12.3, BUN 12, Creatinine 1.07 H, Estimated Creat Clear 49, Estimated GFR 51 L, Est GFR ( Amer) 62, Glucose 235 H, Calcium 9.8 I & O for Last 24 hours: Intake & Output 03/15/19 03/16/19 03/17/19 03/18/19 11:59 11:59 11:59 11:59 Weight 136 lb 4 oz - Constitutional no acute distress - *Routine HEENT Exam Head: Present: normocephalic Eye: Present: EOMI, PERRL ENT: Present: mucous membranes moist Comments: nikolski - *Routine Neck Exam Present: supple. Absent: lymphadenopathy - *Routine Respiratory Exam Present: CTA bilaterally - *Routine Cardiovascular Exam Present: RRR - *Routine Abdominal Exam Present: soft, normoactive bowel sounds. Absent: tenderness - *Routine Extremities Exam Absent: cyanosis, clubbing, edema - *Routine Skin Exam Present: warm. Absent: rash - *Routine Neurological Exam Present: alert, oriented X3 - Routine Psychiatric Exam Present: normal affect Assessment and Plan (1) UTI (urinary tract infection) Current visit: Yes Status: Acute Qualifiers: Urinary tract infection type: acute cystitis Category: Medical Code(s): N39.0 - Urinary tract infection, site not specified (2) Diabetes Current visit: No Status: Chronic Qualifiers: Diabetes mellitus type: type 2 Diabetes mellitus assisted insulin use: without termite exterminator helper use Diabetes mellitus complication status: without complication Qualified Code(s): E11.9 - Type 2 diabetes mellitus without complications Category: Medical Code(s): E11.9 - Type 2 diabetes mellitus without complications (3) Hypertension Current visit: No Status: Chronic Qualifiers: Hypertension type: essential hypertension Qualified Code(s): I10 - Essential (primary) hypertension Category: Medical Code(s): I10 - Essential (primary) hypertension - Assessment and plan all Dx Assessment and Plan for all problems:: Rounded with Dr. Preez all orders per Ana IV fluids await culture
[2019-03-19 07:08] LABS: Basophils % 0.3 % (0.1-2.0); Eosinophils # 0.1 K/mm3 (0.0-0.4); Eosinophils % 0.7 % (0.1-12.0); Hematocrit 35.2 % (37.0-47.0); Hemoglobin 11.6 g/dL (12.2-16.2); Lymphocytes # 2.7 K/mm3 (0.7-4.5); Lymphocytes % 30.5 % (10-50); Mean Corpuscular HGB Conc 32.9 g/dL (31.8-35.4); Mean Corpuscular Hemoglobin 29.7 pg (27.0-31.2); Mean Corpuscular Volume 90.1 fl (81-99); Monocytes # 0.5 K/mm3 (0.1-1.0); Monocytes % 5.4 % (1.7-9.3); Neutrophils # 5.5 K/mm3 (1.8-7.8); Platelet Count 247 K/mm3 (142-424); Red Blood Count 3.91 M/mm3 (4.20-5.40); Red Cell Distribution Width 13.6 % (11.5-17.5); White Blood Count 8.8 K/mm3 (4.8-10.8)
[2019-03-19 07:18] LABS: Anion Gap 11.9 mEq/L (5-15); Potassium 4.9 mmoL/L (3.5-5.1)
--- NOTE | 2019-03-19 13:33 | Discharge Summary ---
General - General Admission date:: 03/17/19 Discharge date: 03/19/19 HPI HPI: 68-year-old female presents for generalized weakness and fatigue. Patient showed up at the doctor's office yesterday complaining she did not feel good. UA was positive patient has a history of ESBL bacteremia patient was admitted cultures obtained and IV antibiotics initiated. Hospital Course Hospital Course: pt did well with ivf and abx and had stable labs and lionel diet and was ambulatory- she was d/c on po abx and will follow in office - Objective Vital signs: Temp Pulse Resp BP Pulse Ox 98.3 F 99 H 18 171/80 H 95 03/19/19 08:00 03/19/19 08:00 03/19/19 08:00 03/19/19 08:00 03/19/19 08:00 no acute distress - *Routine HEENT Exam Head: Present: normocephalic Eye: Present: EOMI, PERRL ENT: Present: mucous membranes dry - *Routine Neck Exam Present: supple - *Routine Respiratory Exam Present: CTA bilaterally - *Routine Cardiovascular Exam Present: RRR, murmur - *Routine Abdominal Exam Present: soft - *Routine Extremities Exam Absent: edema - *Routine Skin Exam Present: intact - *Routine Neurological Exam Present: alert, oriented X3, CN II-XII intact - Routine Psychiatric Exam Present: normal affect Results Labs on day of discharge: Labs from last 24 hours 03/19/19 03/19/19 06:34 06:34 WBC 8.8 RBC 3.91 L Hgb 11.6 L Hct 35.2 L MCV 90.1 MCH 29.7 MCHC 32.9 RDW 13.6 Plt Count 247 MPV 8.0 Neut % (Auto) 63.0 Lymph % (Auto) 30.5 [place] % (Auto) 5.4 Eos % (Auto) 0.7 Baso % (Auto) 0.3 Neut # (Auto) 5.5 Lymph # (Auto) 2.7 [place] # (Auto) 0.5 Eos # (Auto) 0.1 Baso # (Auto) 0.0 Sodium 133 L Potassium 4.9 Chloride 99 Carbon Dioxide 27 Anion Gap 11.9 BUN 11 Creatinine 0.93 Estimated Creat Clear 53 Estimated GFR 60 Est GFR ( Amer) 73 Glucose 287 H Calcium 9.0 DS: Diagnosis - Discharge Diagnosis (1) UTI (urinary tract infection) Status: Acute (2) Diabetes Status: Chronic (3) Hypertension Status: Chronic (4) Hyponatremia Status: Acute (5) E. coli UTI (urinary tract infection) Status: Acute Discharge Plan - Patient Discharge Instructions ACTIVITY: Continue current activity DIET: continue same diet Patient Instructions: DI for Urinary Tract Infection (UTI) - Follow up Plan Home Medications: Home Medications Medication Instructions Recorded Confirmed Type cyanocobalamin (vit B-12) 1,000 1,000 mcg PO ONCE 06/11/18 03/18/19 History mcg tablet Aspirin [Low Dose Aspirin EC] 81 mg PO DAILY 03/17/19 03/18/19 History Cholecalciferol (Vitamin D3) 5,000 unit PO DAILY 03/17/19 03/18/19 History [Vitamin D3] Ergocalciferol (Vitamin D2) 50,000 unit PO QWEEK 03/17/19 03/18/19 History [Drisdol] Linagliptin [Tradjenta] 5 mg PO DAILY 03/17/19 03/18/19 History Lisinopril [Lisinopril 40mg Tablet] 40 mg PO DAILY 03/17/19 03/18/19 History Metformin HCl [Glucophage] 500 mg PO DAILY 03/17/19 03/18/19 History Metoprolol Succinate 25 mg PO DAILY 03/17/19 03/18/19 History Amlodipine Besylate 10 mg PO DAILY 03/18/19 03/18/19 History Simvastatin 5 mg PO HS 03/18/19 03/18/19 History Cefdinir [Omnicef 300mg Capsule] 300 mg PO BID 7 Days #14 cap 03/19/19 Rx Prescriptions/Medication Reconciliation: New Pravastatin Sodium [Pravachol 20mg Tablet] 10 mg PO HS tablet Cefdinir [Omnicef 300mg Capsule] 300 mg PO BID 7 Days #14 cap Amlodipine Besylate [Norvasc 10mg tablet] 10 mg PO DAILY tablet Continued cyanocobalamin (vit B-12) 1,000 mcg tablet 1,000 mcg PO ONCE Metoprolol Succinate 25 mg PO DAILY Metformin HCl [Glucophage] 500 mg PO DAILY Linagliptin [Tradjenta] 5 mg PO DAILY Ergocalciferol (Vitamin D2) [Drisdol] 50,000 unit PO QWEEK Cholecalciferol (Vitamin D3) [Vitamin D3] 5,000 unit PO DAILY Aspirin [Low Dose Aspirin EC] 81 mg PO DAILY Lisinopril [Lisinopril 40mg Tablet] 40 mg PO DAILY Amlodipine Besylate 10 mg PO DAILY Simvastatin 5 mg PO HS
== END 2019-03-19 14:14 | disposition home or self-care (01) ==
LOC: ER 16:58 → 2ND 16:58
PROVIDERS: ADMIT Emergency Medicine; ATTEND Emergency Medicine
CPT/HCPCS: 36415; 71010; 71045; 80048; 80053; 81001; 83605; 84484; 85025; 87040; 87086; 87088; 87186; 93005; 96365; 99284; G0378; J1335

== ENCOUNTER → 2019-03-17 17:49 | Outpatient (CLI) | payer MEDICARE, OTHER, SELFPAY | PROVIDERS: Visit Provider Emergency Medicine | DX: R30.0 Dysuria (principal) | CPT/HCPCS: 87086; 87088; 87186 ==

== ENCOUNTER → 2019-03-26 16:57 | Outpatient (CLI) | payer MEDICARE, OTHER, SELFPAY | PROVIDERS: Visit Provider Nurse Practitioner Family | DX: B96.20 Unspecified Escherichia coli [E. coli] as the cause of diseases classified elsewhere (principal); E87.1 Hypo-osmolality and hyponatremia; N39.0 Urinary tract infection, site not specified; Z09 Encounter for follow-up examination after completed treatment for conditions other than malignant neoplasm | CPT/HCPCS: 87086 ==

== ENCOUNTER → 2019-03-31 16:55 | Outpatient (CLI) | payer MEDICARE, OTHER, SELFPAY | PROVIDERS: Visit Provider Emergency Medicine | DX: B96.20 Unspecified Escherichia coli [E. coli] as the cause of diseases classified elsewhere (principal); N39.0 Urinary tract infection, site not specified | CPT/HCPCS: 87086; 87088 ==

== ENCOUNTER 2019-05-22 11:19 | Observation (INO) ==
[2019-05-22 12:03] LABS: Microscopic, Urine URINE MICROSCOPIC (MICROSCOPIC)
[2019-05-22 12:10] LABS: Basophils # 0.1 K/mm3 (0-0.2); Basophils % 0.5 % (0.1-2.0); Eosinophils % 0.4 % (0.1-12.0); Hematocrit 43.7 % (37.0-47.0); Hemoglobin 13.7 g/dL (12.2-16.2); Lymphocytes # 2.7 K/mm3 (0.7-4.5); Lymphocytes % 23.8 % (10-50); Mean Corpuscular HGB Conc 31.3 g/dL (31.8-35.4); Mean Corpuscular Volume 91.7 fl (81-99); Mean Platelet Volume 9.5 fl (7.4-10.4); Monocytes # 0.6 K/mm3 (0.1-1.0); Monocytes % 5.7 % (1.7-9.3); Neutrophils # 7.8 K/mm3 (1.8-7.8); Neutrophils % 69.7 % (37.0-80.0); Platelet Count 292 K/mm3 (142-424); Red Blood Count 4.77 M/mm3 (4.20-5.40); Red Cell Distribution Width 14.7 % (11.5-17.5); White Blood Count 11.1 K/mm3 (4.8-10.8)
[2019-05-22 12:11] LABS: Appearance,Urine SL CLOUDY (Clear); Bilirubin,Urine Negative (Negative); Blood, Urine 1+ (Negative); Color,Urine YELLOW (Yellow); Glucose,Urine (UA) 3+ (Negative); Ketones,Urine Negative (Negative); Leukocyte Esterase,Urine Negative (Negative); PH,Urine 5.5 (5.0-8.5); Protein,Urine TRACE (Negative); Urobilinogen,Urine 0.2 EU/dl (0.2)
[2019-05-22 12:18] LABS: Albumin Level 3.5 gm/dL (3.4-5.0); Albumin/Globulin Ratio 0.7 (1.1-1.8); Anion Gap 18.5 mEq/L (5-15); Bilirubin,Total 0.5 mg/dL (0.2-1.0); Calcium 9.2 mg/dL (8.5-10.1); Globulin 4.7 gm/dl (1.3-3.2); Total Protein,Serum 8.2 gm/dL (6.4-8.2)
[2019-05-22 12:58] LABS: WBC,Urine 50-100 #/hpf (0-3)
[2019-05-22 12:59] LABS: Bacteria,Urine 4+ /lpf; Squamous Epithelial Cell,Urine Occasional #/hpf (0-5)
--- NOTE | 2019-05-22 14:39 | Emergency Department Note ---
ED Disposition <Ramiro Benjamin - Last Filed: 05/22/19 14:40> Condition on Discharge: Fair - Critical Care Critical Care Time: No <Norm Martinez - Last Filed: 05/22/19 15:25> Clinical Impression: Urinary tract infection Qualifiers: Urinary tract infection type: acute pyelonephritis Qualified Code(s): N10 - Acute pyelonephritis Disposition: Admitted as Observation Referrals: Ramiro Perez MD [Primary Care Provider] - Attestation: On 05/22/19, the high probability of a clinically significant, sudden or life threatening deterioration of the following system(s) required my full and direct attention, intervention and personal management. The time I documented below is in addition to time spent performing reported procedures but includes the following listed in this critical care notation. Medical Decision Making - Kev Inquiry Pt receiving controlled substance: No - Lab Data Lab results reviewed: Yes: I reviewed the patient's lab results. Result diagrams: 05/22/19 11:30 05/22/19 11:30 <Ramiro Benjamin - Last Filed: 05/22/19 14:40> - Lab Data Result diagrams: 05/22/19 11:30 05/22/19 11:30 <Norm Martinez - Last Filed: 05/22/19 15:25> Vital Signs: 05/22/19 11:30 05/22/19 11:59 05/22/19 12:50 Temperature 98.3 F 98.7 F Temperature Source Oral Oral Pulse Rate [Left Radial] 65 75 78 Respiratory Rate 22 20 Blood Pressure [Right Arm] 139/100 H 123/90 155/76 H Blood Pressure Mean [Right Arm] 113 101 102 Blood Pressure Source [Right Arm] Automatic Cuff Automatic Cuff Blood Pressure Position [Right Arm] Sitting Supine 02 Sat by Pulse Oximetry 98 96 97 Oxygen Delivery Method Room Air Room Air 05/22/19 13:00 05/22/19 13:30 05/22/19 13:55 Temperature Temperature Source Pulse Rate [Left Radial] 58 L 87 86 Respiratory Rate 20 20 20 Blood Pressure [Right Arm] 147/67 H 154/74 H 148/70 H Blood Pressure Mean [Right Arm] 93 100 96 Blood Pressure Source [Right Arm] Automatic Cuff Automatic Cuff Automatic Cuff Blood Pressure Position [Right Arm] Supine Supine Supine 02 Sat by Pulse Oximetry 94 L 94 L 93 L Oxygen Delivery Method Room Air Room Air Room Air 05/22/19 14:25 Temperature Temperature Source Pulse Rate [Left Radial] 63 Respiratory Rate 20 Blood Pressure [Right Arm] 129/66 Blood Pressure Mean [Right Arm] 87 Blood Pressure Source [Right Arm] Automatic Cuff Blood Pressure Position [Right Arm] Supine 02 Sat by Pulse Oximetry 94 L Oxygen Delivery Method Room Air - Lab Data Lab Results 05/22/19 11:30: Urine Color Yellow, Urine Appearance Sl cloudy, Urine pH 5.5, Ur Specific [place] 1.010, Urine Protein Trace, Urine Glucose (UA) 3+, Urine Ketones Negative, Urine Blood 1+, Urine Nitrate Positive, Urine Bilirubin Negative, Urine Urobilinogen 0.2, Ur Leukocyte Esterase Negative, Urine WBC 50- 100, Ur Squamous Epith Cells Occasional, Urine Bacteria 4+ 05/22/19 11:30: WBC 11.1 H, RBC 4.77, Hgb 13.7, Hct 43.7, MCV 91.7, MCH 28.7, MCHC 31.3 L, RDW 14.7, Plt Count 292, MPV 9.5, Neut % (Auto) 69.7, Lymph % (Auto) 23.8, [place] % (Auto) 5.7, Eos % (Auto) 0.4, Baso % (Auto) 0.5, Neut # (Auto) 7.8, Lymph # (Auto) 2.7, [place] # (Auto) 0.6, Eos # (Auto) 0.0, Baso # (Auto) 0.1 05/22/19 11:30: Sodium 126 L, Potassium 4.5, Chloride 90 L, Carbon Dioxide 22, Anion Gap 18.5 H, BUN 12, Creatinine 1.09 H, Estimated Creat Clear 48, Estimated GFR 50 L, Est GFR ( Amer) 60, Glucose 457 H*, Calcium 9.2, Total Bilirub in 0.5, AST 8 L, ALT 16, Alkaline Phosphatase 111, Total Protein 8.2, Albumin 3.5, Globulin 4.7 H, Albumin/Globulin Ratio 0.7 L, Amylase 61, Lipase 231 05/22/19 14:12: POC Glucose 370 H* Orders (Tests/Meds): ED MEDICATIONS Discontinued Medications Generic Name Dose Route Start Last Admin Trade Name Freq PRN Reason Stop Dose Admin Hydromorphone HCl 0.5 mg 05/22/19 11:56 05/22/19 11:59 Dilaudid 2mg/Ml Syringe IV 05/22/19 11:57 0.5 mg ONCE ONE Administration Sodium Chloride 1,000 mls @ 999 mls/hr 05/22/19 13:00 05/22/19 12:50 Sod Chlor 0.9% 1000ml Bag IV 05/22/19 14:00 999 mls/hr .Q1H1M ROSA Administration Ioversol 75 ml 05/22/19 12:55 05/22/19 12:56 Rad-Optiray 350 100ml Vial IV 05/22/19 12:56 75 ml ONCE ONE Administration Protocol Ondansetron HCl 4 mg 05/22/19 11:56 05/22/19 11:59 Zofran 4mg/2ml Vial IV 05/22/19 11:57 4 mg ONCE ONE Administration Sodium Chloride 10 ml 05/22/19 12:55 05/22/19 12:55 Rad-Saline Flush 10ml Syringe IV 05/22/19 12:56 10 ml ONCE ONE Administration ORDERS Category Date Time Status Lactic Acid Stat Lab 05/22/19 15:08 Ordered Blood Culture Stat Micro 05/22/19 15:08 Ordered Urine Culture Stat Micro 05/22/19 11:30 Received Medical Decision Narrative: Attending note: Patient reports abdominal pain, vomiting, dysuria, back pain, urinary frequency for 2 to 3 weeks. Admitted to this hospital 2 to 3 months ago for UTI. Went to primary care provider's office today and was sent to the emergency room. Work-up shows urinary tract infection with air in the urinary bladder, possible gas producing infection. I spoke with Dr. Perez at 3:15 PM: He requests patient be admitted to hospital on Invanz. (Norm Martinez) General Adult HPI - General Mode of Arrival: Ambulatory Limitations: No Limitations Description of Symptoms (Recalled from ER Triage Doc. by RN): to ed per pvt car pt sent by PCP for eval due to abd pain, bloating, nausea vomiting x 2 weeks. pt denies any fever, chills, diarrhea - History of Present Illness Onset (ago): day(s) Location: abdomen Severity: moderate Consistency: intermittent Relieving factors: none Exacerbating factors: none <Ramiro Benjamin - Last Filed: 05/22/19 14:40> <RamsesamorNorm - Last Filed: 05/22/19 15:25> - General Chief complaint: Abdominal Pain Stated complaint: Possible Blood Poisoning Time Seen by Provider: 05/22/19 14:37 - Related Data Home Medications Medication Instructions Recorded Confirmed cyanocobalamin (vit B-12) 1,000 1,000 mcg PO ONCE 06/11/18 05/22/19 mcg tablet Aspirin [Low Dose Aspirin EC] 81 mg PO DAILY 03/17/19 05/22/19 Cholecalciferol (Vitamin D3) 5,000 unit PO DAILY 03/17/19 05/22/19 [Vitamin D3] Ergocalciferol (Vitamin D2) 50,000 unit PO QWEEK 03/17/19 05/22/19 [Drisdol] Linagliptin [Tradjenta 5mg tablet] 5 mg PO DAILY 03/17/19 05/22/19 Lisinopril [Lisinopril 40mg Tablet] 40 mg PO DAILY 03/17/19 05/22/19 Metformin HCl [Glucophage] 500 mg PO DAILY 03/17/19 05/22/19 Amlodipine Besylate 10 mg PO DAILY 03/18/19 05/22/19 Previous Rx's Medication Instructions Recorded metoprolol succinate ER 25 mg 25 mg PO DAILY #90 tab 05/02/19 tablet,extended release 24 hr simvastatin 5 mg tablet 5 mg PO HS #90 tab 05/02/19 Allergies Allergy/AdvReac Type Severity Reaction Status Date / Time albuterol [ALBUTEROL] Allergy Unknown Verified 05/22/19 11:08 enalapril [ENALAPRIL] Allergy Unknown Verified 05/22/19 11:08 fluticasone [FLUTICASONE] Allergy Unknown Verified 05/22/19 11:08 lorazepam [LORAZEPAM] Allergy Unknown Verified 05/22/19 11:08 propranolol [PROPRANOLOL] Allergy Unknown Verified 05/22/19 11:08 [facility] History - Hepatitis A Screen Drug use history?: No High risk sexual behaviors?: No History of sexually transmitted infection?: No Currently employed?: No Childcare worker?: No Do you have indoor plumbing?: Yes Do you have electricity?: Yes I have reviewed the patient's past medical history: Yes Medical History: Reports:: Diabetes Mellitus Type 2, Hypertension, Urinary Tract Infection Denies:: Chronic Obstructive Pulmonary Disease (COPD), Internal Pacemaker, Pulmonary Embolism, Seizures, Transient Ischemic Attacks (TIA) Other Medical History: Reports: Arthritis Other Surgeries: Yes: Cholecystectomy, Colonoscopy, Tubal Ligation. No: Pacemaker Amputation: No Fractures: No Comment: bladder surgery (slings) - Social History Smoking Status: Current every day smoker Tobacco Type: cigarettes # Packs/Day (cigarettes): 1 Alcohol Intake: never Alcohol Intake Frequency:: other Substance Use Type: denies use Occupational Status: retired Housing: house Household Members: spouse - Psychiatric History Expresses thoughts of harming self/others: None Suicide Plan Description: No Plan Family Hx:: Cancer, Heart Attack <CassidyRamiro - Last Filed: 05/22/19 14:40> - Hepatitis A Screen Attestation statement:: This patient has been screened for Hepatitis A risk factors. ROS Obtained: Yes All systems reviewed & no additional complaints - Constitutional Constitutional: Denies body ache, Denies chills, Denies fever(s) - ENT Ears, Nose, Mouth, and Throat: Denies otalgia, Denies sinus pain - Cardiovascular Cardiovascular: Denies chest pain - Respiratory Respiratory: No cough - Gastrointestinal Gastrointestingal: Reports: abdominal pain, nausea. Denies: diarrhea, vomiting blood, vomiting - Genitourinary Female Genitourinary: Reports dysuria <CassidyRamiro Say Last Filed: 05/22/19 14:40> Physical Exam - General General appearance: alert, in no apparent distress, other (uncomfortable appearing) - Head Head exam: atraumatic, normocephalic - Respiratory Respiratory exam: Present: normal lung sounds bilaterally - Cardiovascular Cardiovascular exam: Present: regular rate - Abdominal Exam Abdominal exam: Present: tenderness, guarding. Absent: distention, rebound, trauma Abdominal tenderness: Present: diffuse, moderate - Neurological Exam Neurological exam: Present: alert, oriented X3 - Skin Skin exam: Present: warm, dry, intact, normal color <CassidyRamiro Say Last Filed: 05/22/19 14:40>
--- NOTE | 2019-05-22 22:01 | History & Physical Report ---
*Admission Date: 05/22/19 *Chief complaint: back pain *History of present illness: this wf had back pain and was not feeling well with vomiting and presented to the ed- ending note: Patient reports abdominal pain, vomiting, dysuria, back pain, urinary frequency for 2 to 3 weeks. Admitted to this hospital 2 to 3 months ago for UTI. Went to primary care provider's office today and was sent to the emergency room. Work-up shows urinary tract infection with air in the urinary bladder, possible gas producing infection. I spoke with Dr. Perez at 3:15 PM: He requests patient be admitted to hospital on Invanz- per ed physician - General Mode of Arrival: Ambulatory Limitations: No Limitations Description of Symptoms (Recalled from ER Triage Doc. by RN): to ed per pvt car pt sent by PCP for eval due to abd pain, bloating, nausea vomiting x 2 weeks. pt denies any fever, chills, diarrhea [facility] History I have reviewed the patient's past medical history: Yes Medical History: Reports:: Diabetes Mellitus Type 2, Hypertension, Urinary Tract Infection Denies:: Cancer, Chronic Obstructive Pulmonary Disease (COPD), Diabetes Mellitus Type 1, Internal Pacemaker, MRSA, Pulmonary Embolism, Seizures, Transient Ischemic Attacks (TIA) *Have you ever received a pneumonia vaccine?: Yes *Have you received a flu vaccine this season?: Yes Other Medical History: Reports: Arthritis Other Surgeries: Yes: Cholecystectomy, Colonoscopy, Tubal Ligation. No: Pacema ker Amputation: No Fractures: No - *Social History Educational Level: Completed Grade School Smoking Status: Current every day smoker Tobacco Type: cigarettes # Packs/Day (cigarettes): 1 #Yrs smoked (if former smoker): 40 Alcohol Intake: never Alcohol Intake Frequency:: other Substance Use Type: denies use *Occupational Status:: retired Housing: house Household Members: spouse *Travel in the last 8 weeks: None - Psychiatric History Expresses thoughts of harming self/others: None Suicide Plan Description: No Plan Family Hx:: Cancer, Heart Attack Review of Systems - Review of Systems Review of systems:: pertinent systems reviewed and negative unless documented below - Constitutional Reports fever(s) - Eyes Denies change in vision - ENT Denies sore throat - *Cardiovascular Denies chest pain - *Respiratory Denies cough - *Gastrointestinal Reports abdominal pain, Reports nausea, Reports vomiting - *Genitourinary Reports difficulty urinating - *Musculoskeletal Denies joint pain - Integumentary/Breasts Denies rash - *Neurologic Denies seizure-like activity - Psychiatric Denies anxiety Meds Home Medications Medication Instructions Recorded Confirmed Type cyanocobalamin (vit B-12) 1,000 1,000 mcg PO ONCE 06/11/18 05/22/19 History mcg tablet Aspirin [Low Dose Aspirin EC] 81 mg PO DAILY 03/17/19 05/22/19 History Cholecalciferol (Vitamin D3) 5,000 unit PO DAILY 03/17/19 05/22/19 History [Vitamin D3] Ergocalciferol (Vitamin D2) 50,000 unit PO QWEEK 03/17/19 05/22/19 History [Drisdol] Lisinopril [Lisinopril 40mg Tablet] 40 mg PO DAILY 03/17/19 05/22/19 History Metformin HCl [Glucophage] 500 mg PO DAILY 03/17/19 05/22/19 History Amlodipine Besylate 10 mg PO DAILY 03/18/19 05/22/19 History metoprolol succinate ER 25 mg 25 mg PO DAILY #90 tab 05/02/19 05/22/19 Rx tablet,extended release 24 hr simvastatin 5 mg tablet 5 mg PO HS #90 tab 05/02/19 05/22/19 Rx Allergies Allergy/AdvReac Type Severity Reaction Status Date / Time albuterol [ALBUTEROL] Allergy Unknown Verified 05/22/19 11:08 enalapril [ENALAPRIL] Allergy Unknown Verified 05/22/19 11:08 fluticasone [FLUTICASONE] Allergy Unknown Verified 05/22/19 11:08 lorazepam [LORAZEPAM] Allergy Unknown Verified 05/22/19 11:08 propranolol [PROPRANOLOL] Allergy Unknown Verified 05/22/19 11:08 Exam Vital signs and Labs for Last 24 Hours: Temp Pulse Resp BP Pulse Ox 99.3 F 82 17 143/65 H 93 L 05/22/19 20:00 05/22/19 20:00 05/22/19 20:00 05/22/19 20:00 05/22/19 20:00 Laboratory Results - last 24 hr 05/22/19 11:30: Urine Color Yellow, Urine Appearance Sl cloudy, Urine pH 5.5, Ur Specific [place] 1.010, Urine Protein Trace, Urine Glucose (UA) 3+, Urine Ketones Negative, Urine Blood 1+, Urine Nitrate Positive, Urine Bilirubin Negative, Urine Urobilinogen 0.2, Ur Leukocyte Esterase Negative, Urine WBC 50- 100, Ur Squamous Epith Cells Occasional, Urine Bacteria 4+ 05/22/19 11:30: WBC 11.1 H, RBC 4.77, Hgb 13.7, Hct 43.7, MCV 91.7, MCH 28.7, MCHC 31.3 L, RDW 14.7, Plt Count 292, MPV 9.5, Neut % (Auto) 69.7, Lymph % (Auto) 23.8, [place] % (Auto) 5.7, Eos % (Auto) 0.4, Baso % (Auto) 0.5, Neut # (Auto) 7.8, Lymph # (Auto) 2.7, [place] # (Auto) 0.6, Eos # (Auto) 0.0, Baso # (Auto) 0.1 05/22/19 11:30: Sodium 126 L, Potassium 4.5, Chloride 90 L, Carbon Dioxide 22, Anion Gap 18.5 H, BUN 12, Creatinine 1.09 H, Estimated Creat Clear 48, Estimated GFR 50 L, Est GFR ( Amer) 60, Glucose 457 H*, Calcium 9.2, Total Bilirubin 0.5, AST 8 L, ALT 16, Alkaline Phosphatase 111, Total Protein 8.2, Albumin 3.5, Globulin 4.7 H, Albumin/Globulin Ratio 0.7 L, Amylase 61, Lipase 231 05/22/19 14:12: POC Glucose 370 H* 05/22/19 15:20: Lactate 0.4 05/22/19 16:24: POC Glucose 325 H* 05/22/19 21:21: POC Glucose 218 H I & O for Last 24 hours: Intake & Output 05/20/19 05/21/19 05/22/19 05/23/19 11:59 11:59 11:59 11:59 Intake Total 360 / 360 Balance 360 / 360 Weight 138 lb 139 lb 9 oz - Constitutional no acute distress - *Routine HEENT Exam Head: Present: normocephalic Eye: Present: EOMI, PERRL. Absent: conjunctival icterus ENT: Present: mucous membranes dry - *Routine Neck Exam Present: supple - *Routine Respiratory Exam Present: CTA bilaterally - *Routine Cardiovascular Exam Present: RRR, murmur - *Routine Abdominal Exam Present: soft. Absent: tenderness - *Routine Extremities Exam Absent: calf tenderness - Routine Back/Spine/Pelvis Exam Back/Spine: Present: CVA tenderness - *Routine Skin Exam Present: intact - *Routine Neurological Exam Present: alert, oriented X3, CN II-XII intact. Absent: sensory deficit, motor deficit - Routine Psychiatric Exam Present: normal affect Assessment and Plan (1) UTI (urinary tract infection) Current visit: Yes Status: Acute Qualifiers: Urinary tract infection type: acute pyelonephritis Qualified Code(s): N10 - Acute pyelonephritis Category: Medical Code(s): N39.0 - Urinary tract infection, site not specified (2) Diabetes Current visit: No Status: Chronic Qualifiers: Diabetes mellitus type: type 2 Diabetes mellitus [facility] insulin use: without [facility] use Diabetes mellitus complication status: without complication Qualified Code(s): E11.9 - Type 2 diabetes mellitus without complications Category: Medical Code(s): E11.9 - Type 2 diabetes mellitus without complications (3) Hypertension Current visit: No Status: Chronic Qualifiers: Hypertension type: essential hypertension Qualified Code(s): I10 - Essential (primary) hypertension Category: Medical Code(s): I10 - Essential (primary) hypertension (4) Hyponatremia Current visit: Yes Status: Acute Category: Medical Code(s): E87.1 - Hypo- osmolality and hyponatremia
--- NOTE | 2019-05-23 07:30 | Pharmacy Consult Notes ---
[facility] Pharmacy VTE Monitoring - Patient Demographics Admission date: 05/22/19 Report Date: 05/23/19 Time: 07:30 Allergies/Adverse Reactions: Patient Allergies albuterol [ALBUTEROL] Allergy (Unknown, Verified 05/22/19 11:08) enalapril [ENALAPRIL] Allergy (Unknown, Verified 05/22/19 11:08) fluticasone [FLUTICASONE] Allergy (Unknown, Verified 05/22/19 11:08) lorazepam [LORAZEPAM] Allergy (Unknown, Verified 05/22/19 11:08) propranolol [PROPRANOLOL] Allergy (Unknown, Verified 05/22/19 11:08) Height: 1.63 m Weight: 64.467 kg Patient Problems: Current Active Problems (Updated 05/22/19 @ 22:10 by Ramiro Perez MD) UTI (urinary tract infection) (Acute) Hyponatremia (Acute) - VTE Risk Labs: VTE Related Lab Results Hgb 13.7 g/dL (12.2-16.2) 05/22/19 11:30 Hct 43.7 % (37.0-47.0) 05/22/19 11:30 Plt Count 292 K/mm3 (142-424) 05/22/19 11:30 BUN 12 mg/dL (7-18) 05/22/19 11:30 Creatinine 1.09 mg/dL (0.55-1.02) H 05/22/19 11:30 Estimated Creat Clear 48 mL/min (50-200) 05/22/19 11:30 Was VTE Risk Assessment Performed: Yes VTE Score: 2 Clinical Trial Participant: No - Prophylaxis VTE Prophylaxis Ordered?: Yes Types of VTE Prophylaxis: TEDS Knee High Location of Applied Device: Bilateral Lower Extremeties
--- NOTE | 2019-05-23 09:59 | Progress Note ---
Internal Medicine - PN: Subj *Date: 05/23/19 *Time: 09:57 Interval history: doing better - has gram neg romulo infection - no vomiting Exam Vital signs and Labs for Last 24 Hours: Temp Pulse Resp BP Pulse Ox 99.3 F 86 18 163/56 H 94 L 05/23/19 08:00 05/23/19 08:00 05/23/19 08:00 05/23/19 08:00 05/23/19 08:00 Laboratory Results - last 24 hr 05/22/19 11:30: Urine Color Yellow, Urine Appearance Sl cloudy, Urine pH 5.5, Ur Specific [place] 1.010, Urine Protein Trace, Urine Glucose (UA) 3+, Urine Ketones Negative, Urine Blood 1+, Urine Nitrate Positive, Urine Bilirubin Negative, Urine Urobilinogen 0.2, Ur Leukocyte Esterase Negative, Urine WBC 50- 100, Ur Squamous Epith Cells Occasional, Urine Bacteria 4+ 05/22/19 11:30: WBC 11.1 H, RBC 4.77, Hgb 13.7, Hct 43.7, MCV 91.7, MCH 28.7, MCHC 31.3 L, RDW 14.7, Plt Count 292, MPV 9.5, Neut % (Auto) 69.7, Lymph % (Auto) 23.8, [place] % (Auto) 5.7, Eos % (Auto) 0.4, Baso % (Auto) 0.5, Neut # (Auto) 7.8, Lymph # (Auto) 2.7, [place] # (Auto) 0.6, Eos # (Auto) 0.0, Baso # (Auto) 0.1 05/22/19 11:30: Sodium 126 L, Potassium 4.5, Chloride 90 L, Carbon Dioxide 22, Anion Gap 18.5 H, BUN 12, Creatinine 1.09 H, Estimated Creat Clear 48, Estimated GFR 50 L, Est GFR ( Amer) 60, Glucose 457 H*, Calcium 9.2, Total Bilirubin 0.5, AST 8 L, ALT 16, Alkaline Phosphatase 111, Total Protein 8.2, Albumin 3.5, Globulin 4.7 H, Albumin/Globulin Ratio 0.7 L, Amylase 61, Lipase 231 05/22/19 14:12: POC Glucose 370 H* 05/22/19 15:20: Lactate 0.4 05/22/19 16:24: POC Glucose 325 H* 05/22/19 21:21: POC Glucose 218 H 05/23/19 05:33: POC Glucose 265 H I & O for Last 24 hours: Intake & Output 05/20/19 05/21/19 05/22/19 05/23/19 11:59 11:59 11:59 11:59 Intake Total 1158 / 1158 Output Total 360 / 360 Balance 798 / 798 Weight 138 lb 142 lb 2 oz Microbiology Reports for the Last 24 Hours: Microbiology 05/22/19 11:30 Urine,Clean Catch Urine Culture - Preliminary Gram Negative Rods - Constitutional no acute distress - *Routine HEENT Exam Head: Present: normocephalic Eye: Present: EOMI, PERRL ENT: Present: mucous membranes dry - *Routine Neck Exam Present: supple - *Routine Respiratory Exam Present: decreased breath sounds - *Routine Cardiovascular Exam Present: RRR, murmur - *Routine Abdominal Exam Present: soft - *Routine Extremities Exam Absent: calf tenderness - *Routine Skin Exam Present: intact - *Routine Neurological Exam Present: alert, CN II-XII intact - Routine Psychiatric Exam Present: normal affect Assessment and Plan (1) UTI (urinary tract infection) Current visit: Yes Status: Acute Qualifiers: Urinary tract infection type: acute pyelonephritis Qualified Code(s): N10 - Acute pyelonephritis Category: Medical Code(s): N39.0 - Urinary tract infection, site not specified (2) Diabetes Current visit: No Status: Chronic Qualifiers: Diabetes mellitus type: type 2 Diabetes mellitus rat exterminator insulin use: without rat exterminator use Diabetes mellitus complication status: without complication Qualified Code(s): E11.9 - Type 2 diabetes mellitus without complications Category: Medical Code(s): E11.9 - Type 2 diabetes mellitus without complications (3) Hypertension Current visit: No Status: Chronic Qualifiers: Hypertension type: essential hypertension Qualified Code(s): I10 - Ess ential (primary) hypertension Category: Medical Code(s): I10 - Essential (primary) hypertension (4) Hyponatremia Current visit: Yes Status: Acute Category: Medical Code(s): E87.1 - Hypo- osmolality and hyponatremia
--- NOTE | 2019-05-24 09:24 | Discharge Summary ---
General - General Admission date:: 05/22/19 Discharge date: 05/24/19 HPI HPI: this wf had back pain and was not feeling well with vomiting and presented to the ed- ending note: Patient reports abdominal pain, vomiting, dysuria, back pain, urinary frequency for 2 to 3 weeks. Admitted to this hospital 2 to 3 months ago for UTI. Went to primary care provider's office today and was sent to the emergency room. Work-up shows urinary tract infection with air in the urinary bladder, possible gas producing infection. I spoke with Dr. Perez at 3:15 PM: He requests patient be admitted to hospital on Invan[facility]- per ed physician - General Mode of Arrival: Ambulatory Limitations: No Limitations Description of Symptoms (Recalled from ER Triage Doc. by RN): to ed per pvt car pt sent by PCP for eval due to abd pain, bloating, nausea vomiting x 2 weeks. pt denies any fever, chills, diarrhea Hospital Course Hospital Course: pt with improvement with ivf and antibiotics and has been mobile and tolerating diet - pt with positive urine culture - e coli - not esbl- pt will be d/c with close follow up Objective Vital signs: Temp Pulse Resp BP Pulse Ox 97.9 F 88 18 166/66 H 94 L 05/24/19 08:00 05/24/19 08:00 05/24/19 08:00 05/24/19 08:00 05/24/19 08:00 no acute distress - *Routine HEENT Exam Head: Present: normocephalic Eye: Present: EOMI, PERRL ENT: Present: mucous membranes dry - *Routine Neck Exam Present: supple - *Routine Respiratory Exam Present: CTA bilaterally - *Routine Cardiovascular Exam Present: RRR, murmur, S4 - *Routine Abdominal Exam Present: soft. Absent: tenderness, distended, rebound - *Routine Extremities Exam Absent: full ROM - Routine Back/Spine/Pelvis Exam Back/Spine: Absent: CVA tenderness - *Routine Skin Exam Present: intact - *Routine Neurological Exam Present: alert, oriented X3, CN II-XII intact. Absent: sensory deficit, motor deficit - Routine Psychiatric Exam Present: normal affect Results Labs on day of discharge: Labs from last 24 hours 05/23/19 05/23/19 05/23/19 20:49 16:43 11:07 POC Glucose 320 H* 247 H 326 H* DS: Diagnosis - Discharge Diagnosis (1) UTI (urinary tract infection) Status: Acute (2) Diabetes Status: Chronic (3) Hypertension Status: Chronic (4) Hyponatremia Status: Acute (5) E. coli UTI (urinary tract infection) Status: Acute Discharge Plan - Patient Discharge Instructions ACTIVITY: Continue current activity DIET: continue same diet Patient Instructions: Carbohydrate-Counting Diet, DI for Urinary Tract Infection (UTI) - Follow up Plan Disposition: Home, Self-Fdc Medications: Home Medications Medication Instructions Recorded Confirmed Type cyanocobalamin (vit B-12) 1,000 1,000 mcg PO DAILY 06/11/18 05/23/19 History mcg tablet Aspirin [Low Dose Aspirin EC] 81 mg PO DAILY 03/17/19 05/22/19 History Cholecalciferol (Vitamin D3) 5,000 unit PO DAILY 03/17/19 05/22/19 History [Vitamin D3] Ergocalciferol (Vitamin D2) 50,000 unit PO WEEKLY 03/17/19 05/23/19 History [Drisdol] Lisinopril [Lisinopril 40mg Tablet] 40 mg PO DAILY 03/17/19 05/22/19 History Metformin HCl [Glucophage] 500 mg PO DAILY 03/17/19 05/22/19 History Amlodipine Besylate 10 mg PO DAILY 03/18/19 05/22/19 History metoprolol succinate ER 25 mg 25 mg PO DAILY #90 tab 05/02/19 05/22/19 Rx tablet,extended release 24 hr simvastatin 5 mg tablet 5 mg PO HS #90 tab 05/02/19 05/22/19 Rx Linagliptin [Tradjenta 5mg tablet] 5 mg PO DAILY 05/23/19 05/23/19 History cephALEXin [Keflex 500mg Cap] 500 mg PO TID #30 cap 05/24/19 Rx Prescriptions/Medication Reconciliation: New cephALEXin [Keflex 500mg Cap] 500 mg PO TID #30 cap Continued cyanocobalamin (vit B-12) 1,000 mcg tablet 1,000 mcg PO DAILY simvastatin 5 mg tablet 5 mg PO HS #90 tab metoprolol succinate ER 25 mg tablet,extended release 24 hr 25 mg PO DAILY #90 tab Metformin HCl [Glucophage] 500 mg PO DAILY Ergocalciferol (Vitamin D2) [Drisdol] 50,000 unit PO WEEKLY Cholecalciferol (Vitamin D3) [Vitamin D3] 5,000 unit PO DAILY Aspirin [Low Dose Aspirin EC] 81 mg PO DAILY Linagliptin [Tradjenta 5mg tablet] 5 mg PO DAILY Lisinopril [Lisinopril 40mg Tablet] 40 mg PO DAILY Amlodipine Besylate 10 mg PO DAILY
== END 2019-05-24 11:42 | disposition home or self-care (01) ==
LOC: ER 11:19 → 2ND 15:18 → INTOOBSV 15:51 → OBSVTOIN 15:51 → 2ND 15:52
PROVIDERS: ADMIT Emergency Medicine; ATTEND Emergency Medicine
DX: E11.9 Type 2 diabetes mellitus without complications; N39.0 Urinary tract infection, site not specified; Z79.899 Other long term (current) drug therapy; E87.1 Hypo-osmolality and hyponatremia; Z88.8 Allergy status to other drugs, medicaments and biological substances; N10 Acute pyelonephritis; B96.29 Other Escherichia coli [E. coli] as the cause of diseases classified elsewhere; I10 Essential (primary) hypertension
CPT/HCPCS: 36415; 74177; 80053; 81001; 82150; 82962; 83605; 83690; 85025; 87040; 87086; 87088; 87186; 96365; 96367; 96375; 99285; G0378; J1335; J2405; Q9967

== ENCOUNTER → 2019-05-28 13:21 | Outpatient (CLI) | payer MEDICARE, OTHER, SELFPAY ==
[2019-05-28 14:52] LABS: Anion Gap 17.6 mEq/L (5-15); Blood Urea Nitrogen 20 mg/dL (7-18); Calcium 9.1 mg/dL (8.5-10.1); Carbon Dioxide 24 mmol/L (21.0-32.0); Chloride 92 mmol/L (98-107); Creatinine,Serum 1.05 mg/dL (0.55-1.02); Estimated Glomerular Filt Rate 52 ml/min (>60); GFR (African American) 63 ML/MIN (>60); Glucose 355 mg/dL (74-106); Potassium 4.6 mmoL/L (3.5-5.1); Sodium 129 mmol/L (136-145)
== END ==
PROVIDERS: Visit Provider Emergency Medicine
DX: R10.9 Unspecified abdominal pain (principal)
CPT/HCPCS: 80048

== ENCOUNTER → 2019-06-18 13:50 | Outpatient (CLI) | payer MEDICARE, OTHER, SELFPAY ==
[2019-06-18 14:37] LABS: Alanine Aminotransferase 19 U/L (12-78); Albumin Level 3.9 gm/dL (3.4-5.0); Albumin/Globulin Ratio 1.1 (1.1-1.8); Alkaline Phosphatase 93 U/L (46-116); Anion Gap 16.5 mEq/L (5-15); Aspartate Amino Transferase 12 U/L (15-37); Bilirubin,Total 0.3 mg/dL (0.2-1.0); Blood Urea Nitrogen 12 mg/dL (7-18); Calcium 9.4 mg/dL (8.5-10.1); Carbon Dioxide 22 mmol/L (21.0-32.0); Chloride 99 mmol/L (98-107); Creatinine,Serum 0.94 mg/dL (0.55-1.02); Estimated Glomerular Filt Rate 59 ml/min (>60); GFR (African American) 71 ML/MIN (>60); Globulin 3.6 gm/dl (1.3-3.2); Glucose 173 mg/dL (74-106); Potassium 4.5 mmoL/L (3.5-5.1); Sodium 133 mmol/L (136-145); Total Protein,Serum 7.5 gm/dL (6.4-8.2)
== END ==
PROVIDERS: Visit Provider Emergency Medicine
DX: R53.83 Other fatigue (principal); N39.0 Urinary tract infection, site not specified
CPT/HCPCS: 80053; 87086; 87088; 87186

== ENCOUNTER → 2019-06-24 13:24 | Outpatient (CLI) | payer MEDICARE, OTHER, SELFPAY ==
[2019-06-24 14:49] LABS: Chol/HDL Ratio 8.7 (1-3.5); Cholesterol 306 mg/dL (140-200); HDL Cholesterol 35 mg/dL (29-89); T4 (Thyroxine) 8.9 ug/dl (4.7-13.3); Thyroid Stimulating Hormone 1.12 uIU/ml (0.358-3.740)
[2019-06-24 15:12] LABS: Triglycerides 849 mg/dL (30-200)
[2019-06-24 15:13] LABS: Basophils % 0.5 % (0.1-2.0); Eosinophils # 0.1 K/mm3 (0.0-0.4); Eosinophils % 1.1 % (0.1-12.0); Hematocrit 42.4 % (37.0-47.0); Hemoglobin 13.7 g/dL (12.2-16.2); Lymphocytes # 2.5 K/mm3 (0.7-4.5); Lymphocytes % 35.9 % (10-50); Mean Corpuscular HGB Conc 32.2 g/dL (31.8-35.4); Mean Corpuscular Volume 89.9 fl (81-99); Mean Platelet Volume 9.1 fl (7.4-10.4); Monocytes # 0.5 K/mm3 (0.1-1.0); Neutrophils # 3.9 K/mm3 (1.8-7.8); Neutrophils % 55.5 % (37.0-80.0); Platelet Count 258 K/mm3 (142-424); Red Blood Count 4.72 M/mm3 (4.20-5.40); Red Cell Distribution Width 15.1 % (11.5-17.5)
[2019-06-24 16:10] LABS: Hemoglobin A1C 9.3 % (0.0-7.0)
[2019-06-26 13:19] LABS: Microalbumin, Urine 53.7 ug/mL (Not Estab.)
== END ==
PROVIDERS: Visit Provider Physician Assistant
DX: E11.9 Type 2 diabetes mellitus without complications (principal); N39.0 Urinary tract infection, site not specified; Z79.84 Long term (current) use of oral hypoglycemic drugs; E55.9 Vitamin D deficiency, unspecified
CPT/HCPCS: 80061; 82043; 82652; 83036; 84436; 84443; 85025; 87086

== ENCOUNTER → 2019-08-02 11:31 | Outpatient (CLI) | payer MEDICARE, OTHER, SELFPAY ==
[2019-08-02 11:33] LABS: Adenovirus F 40/41, stool Not Detected (NotDetected); Astrovirus Not Detected (NotDetected); Campylobacter Not Detected (NotDetected); Clostridium Difficile A/B, PCR Not Detected (NotDetected); Cryptosporidium Not Detected (NotDetected); Cyclospora Cayetanesis Not Detected (NotDetected); Entamoeba histolytica Not Detected (NotDetected); Enteroaggregative E coli Not Detected (NotDetected); Enteropathogenic E coli Not Detected (NotDetected); Enterotoxigenic E coli Not Detected (NotDetected); Giardia lamblia Not Detected (NotDetected); Norovirus Not Detected (NotDetected); Plesimonas Shigalloides, PCR Not Detected (NotDetected); Rotavirus A Not Detected (NotDetected); Salmonella, PCR Not Detected (NotDetected); Sapovirus Not Detected (NotDetected); Shiga-like toxin E coli Not Detected (NotDetected); Shigella Enterovasive E coli Not Detected (NotDetected); Vibrio Cholerae Not Detected (NotDetected); Vibrio, PCR Not Detected (NotDetected); Yersinia Entercolitica, PCR Not Detected (NotDetected)
== END ==
PROVIDERS: Visit Provider Nurse Practitioner Family
DX: R19.7 Diarrhea, unspecified (principal)
CPT/HCPCS: 87506

== ENCOUNTER → 2019-10-20 13:36 | Outpatient (CLI) | payer MEDICARE, OTHER, SELFPAY | PROVIDERS: Visit Provider Emergency Medicine | DX: R10.9 Unspecified abdominal pain (principal) | CPT/HCPCS: 87086; 87088; 87186 ==

== ENCOUNTER → 2019-11-24 10:15 | Outpatient (POV) | payer MEDICARE, OTHER, SELFPAY | PROVIDERS: Visit Provider Nurse Practitioner Family | DX: Z00.00 Encounter for general adult medical examination without abnormal findings (principal) ==

== ENCOUNTER → 2019-11-28 11:53 | Outpatient (CLI) | payer MEDICARE, OTHER, SELFPAY ==
[2019-11-28 11:57] LABS: Adenovirus F 40/41, stool Not Detected (NotDetected); Astrovirus Not Detected (NotDetected); Campylobacter Not Detected (NotDetected); Clostridium Difficile A/B, PCR Not Detected (NotDetected); Cryptosporidium Not Detected (NotDetected); Cyclospora Cayetanesis Not Detected (NotDetected); Entamoeba histolytica Not Detected (NotDetected); Enteroaggregative E coli Not Detected (NotDetected); Enteropathogenic E coli Not Detected (NotDetected); Enterotoxigenic E coli Not Detected (NotDetected); Giardia lamblia Not Detected (NotDetected); Norovirus Not Detected (NotDetected); Plesimonas Shigalloides, PCR Not Detected (NotDetected); Rotavirus A Not Detected (NotDetected); Salmonella, PCR Not Detected (NotDetected); Sapovirus Not Detected (NotDetected); Shiga-like toxin E coli Not Detected (NotDetected); Shigella Enterovasive E coli Not Detected (NotDetected); Vibrio Cholerae Not Detected (NotDetected); Vibrio, PCR Not Detected (NotDetected); Yersinia Entercolitica, PCR Not Detected (NotDetected)
== END ==
PROVIDERS: Visit Provider Nurse Practitioner Family
DX: R14.0 Abdominal distension (gaseous) (principal); R19.4 Change in bowel habit; R19.7 Diarrhea, unspecified; R10.30 Lower abdominal pain, unspecified
CPT/HCPCS: 87506

== ENCOUNTER → 2019-12-22 16:45 | Outpatient (CLI) | payer MEDICARE, OTHER, SELFPAY ==
[2019-12-22 17:43] LABS: Alanine Aminotransferase 12 U/L (12-78); Albumin Level 4.1 gm/dL (3.4-5.0); Albumin/Globulin Ratio 1.1 (1.1-1.8); Alkaline Phosphatase 103 U/L (46-116); Anion Gap 17.5 mEq/L (5-15); Aspartate Amino Transferase 12 U/L (15-37); Bilirubin,Total 0.3 mg/dL (0.2-1.0); Blood Urea Nitrogen 19 mg/dL (7-18); Calcium 10.1 mg/dL (8.5-10.1); Carbon Dioxide 28 mmol/L (21.0-32.0); Chloride 91 mmol/L (98-107); Cholesterol 429 mg/dL (140-200); Creatinine,Serum 1.21 mg/dL (0.55-1.02); Estimated Glomerular Filt Rate 44 ml/min (>60); Free T4 (Free Thyroxine) 1.29 ng/dl (0.76-1.46); GFR (African American) 53 ML/MIN (>60); Globulin 3.8 gm/dl (1.3-3.2); Glucose 203 mg/dL (74-106); HDL Cholesterol 43 mg/dL (29-89); Potassium 5.5 mmoL/L (3.5-5.1); Sodium 131 mmol/L (136-145); Thyroid Stimulating Hormone 0.84 uIU/ml (0.358-3.740); Total Protein,Serum 7.9 gm/dL (6.4-8.2)
[2019-12-22 17:55] LABS: Triglycerides 1088 mg/dL (30-200)
[2019-12-22 17:57] LABS: Basophils # 0.1 K/mm3 (0-0.2); Basophils % 0.6 % (0.1-2.0); Eosinophils # 0.1 K/mm3 (0.0-0.4); Eosinophils % 0.5 % (0.1-12.0); Hematocrit 46.7 % (37.0-47.0); Lymphocytes # 3.7 K/mm3 (0.7-4.5); Lymphocytes % 32.7 % (10-50); Mean Corpuscular HGB Conc 32.2 g/dL (31.8-35.4); Mean Platelet Volume 9.8 fl (7.4-10.4); Monocytes # 0.6 K/mm3 (0.1-1.0); Monocytes % 5.3 % (1.7-9.3); Neutrophils # 6.8 K/mm3 (1.8-7.8); Neutrophils % 60.9 % (37.0-80.0); Platelet Count 341 K/mm3 (142-424); Red Blood Count 5.02 M/mm3 (4.20-5.40); Red Cell Distribution Width 15.4 % (11.5-17.5); White Blood Count 11.2 K/mm3 (4.8-10.8)
[2019-12-22 19:43] LABS: Hemoglobin A1C 7.3 % (0.0-7.0)
[2019-12-24 11:28] LABS: Creatinine, Urine 52.1 mg/dL (Not Estab.)
[2019-12-25 17:00] LABS: Vitamin D 25 Hydroxy 13.6 ng/mL (30.0-100.0)
== END ==
PROVIDERS: Visit Provider Emergency Medicine
DX: E11.9 Type 2 diabetes mellitus without complications (principal); Z79.84 Long term (current) use of oral hypoglycemic drugs
CPT/HCPCS: 80053; 80061; 82043; 82570; 82652; 83036; 84439; 84443; 85025

== ENCOUNTER → 2020-01-07 15:17 | Outpatient (CLI) | payer MEDICARE, OTHER, SELFPAY ==
--- NOTE | 2020-01-07 15:22 | MM_ITS ---
PROCEDURE: MM DIG SCREENING MAMM BI W/CAD CLINICAL INDICATION: screening xmg There is a history of breast cancer in patient's mother diagnosed after menopause. COMPARISON: [facility] DIG MAMM-SCREEN [facility] from 11/21/2016 [facility] MM Dig screening mamm BI w/CAD from 12/06/2017 [facility] MM Dig screening mamm BI w/CAD from 12/12/2018 TECHNIQUE: Standard CC and MLO images and 3D Tomosynthesis was obtained. R2 CAD reviewed. FINDINGS: Moderate diffuse fibroglandular densities are seen in both breasts. There is no suspicious lesion and no suspicious microcalcifications. IMPRESSION: Stable exam with no suspicious lesions seen BI-RAD Category: 2 Benign Finding(s) FOLLOW-UP: 1YR 1 Year Follow-up (A letter has been sent to the patient regarding results of the study.) Dictated by: Dr. Arron Maravilla MD 01/09/2020 09:[address] Arron Maravilla MD in [place] 01/09/2020 09:25
== END ==
PROVIDERS: PCP Emergency Medicine; Visit Provider Nurse Practitioner Obstetrics & Gynecology
DX: Z12.31 Encounter for screening mammogram for malignant neoplasm of breast (principal)
CPT/HCPCS: 77063; 77067

== ENCOUNTER → 2020-01-09 17:21 | Outpatient (CLI) | payer MEDICARE, OTHER, SELFPAY ==
[2020-01-09 18:20] LABS: Anion Gap 17.3 mEq/L (5-15); Blood Urea Nitrogen 10 mg/dL (7-18); Calcium 9.3 mg/dL (8.5-10.1); Carbon Dioxide 27 mmol/L (21.0-32.0); Chloride 99 mmol/L (98-107); Creatinine,Serum 1.13 mg/dL (0.55-1.02); Estimated Glomerular Filt Rate 48 ml/min (>60); GFR (African American) 58 ML/MIN (>60); Glucose 283 mg/dL (74-106); Potassium 4.3 mmoL/L (3.5-5.1); Sodium 139 mmol/L (137-145)
== END ==
PROVIDERS: Visit Provider Emergency Medicine
DX: I10 Essential (primary) hypertension (principal); E11.9 Type 2 diabetes mellitus without complications; Z79.84 Long term (current) use of oral hypoglycemic drugs
CPT/HCPCS: 80048

== ENCOUNTER → 2020-01-26 12:59 | Outpatient (POV) | payer MEDICARE, OTHER, SELFPAY ==
[2020-01-26 13:05] LABS: Microscopic, Urine URINE MICROSCOPIC (MICROSCOPIC)
[2020-01-26 13:41] LABS: Basophils # 0.1 K/mm3 (0-0.2); Basophils % 0.5 % (0.1-2.0); Eosinophils # 0.1 K/mm3 (0.0-0.4); Eosinophils % 0.4 % (0.1-12.0); Hematocrit 44.7 % (37.0-47.0); Hemoglobin 14.6 g/dL (12.2-16.2); Lymphocytes # 3.9 K/mm3 (0.7-4.5); Mean Corpuscular HGB Conc 32.7 g/dL (31.8-35.4); Mean Corpuscular Hemoglobin 29.9 pg (27.0-31.2); Mean Corpuscular Volume 91.5 fl (81-99); Mean Platelet Volume 8.7 fl (7.4-10.4); Monocytes # 0.7 K/mm3 (0.1-1.0); Monocytes % 4.7 % (1.7-9.3); Neutrophils # 10.8 K/mm3 (1.8-7.8); Neutrophils % 69.4 % (37.0-80.0); Platelet Count 374 K/mm3 (142-424); Red Blood Count 4.88 M/mm3 (4.20-5.40); White Blood Count 15.5 K/mm3 (4.8-10.8)
[2020-01-26 13:49] LABS: MANUAL DIFFERENTIAL MANUAL DIFFERENTIAL (MANUAL DIFF)
[2020-01-26 13:56] LABS: Appearance,Urine CLEAR (Clear); Bilirubin,Urine Negative (Negative); Blood, Urine 2+ (Negative); Color,Urine YELLOW (Yellow); Glucose,Urine (UA) 3+ (Negative); Ketones,Urine Negative (Negative); Leukocyte Esterase,Urine TRACE (Negative); Nitrate,Urine POSITIVE (Negative); PH,Urine 5.5 (5.0-8.5); Protein,Urine TRACE (Negative); Urobilinogen,Urine 0.2 EU/dl (0.2)
[2020-01-26 14:28] LABS: Bacteria,Urine 3+ /lpf; RBC,Urine 20-50 #/hpf (0-3); WBC,Urine TNTC #/hpf (0-3)
[2020-01-26 14:44] LABS: Albumin Level 4.6 g/dl (3.5-5.0); Anion Gap 20.4 mEq/L (5-15); Blood Urea Nitrogen 15 mg/dl (7-17); Calcium 10.2 mg/dl (8.4-10.2); Carbon Dioxide 24 mmol/L (22.0-30.0); Chloride 92 mmol/L (98-107); Estimated Glomerular Filt Rate 62 ml/min (>60); GFR (African American) 75 ML/MIN (>60); Glucose 384 mg/dl (74-100); Phosphorous 4.5 mg/dl (2.5-4.5); Potassium 4.4 mmoL/L (3.5-5.1); Sodium 132 mmol/L (136-145)
[2020-01-26 16:30] LABS: Lymphocytes % 25 % (10-50); Monocytes % 9 % (2-9); Neutrophils % 61 % (42-76); Total Cells Counted 100
[2020-01-26 16:31] LABS: Platelet Estimate Normal; RBC Morphology Normal
[2020-01-26 17:21] LABS: Creatinine,Urine Random 42 mg/dL (Not Estab.)
[2020-01-27 13:08] LABS: Vitamin D 25 Hydroxy 13.3 ng/mL (30.0-100.0)
[2020-01-27 16:20] LABS: Parathyroid Hormone Intact 41 pg/mL (15-65)
[2020-01-28 10:56] LABS: Calcium, Ionized 5.3 mg/dL (4.5-5.6)
[2020-01-28 16:14] LABS: Microalbumin, Urine 98.9 ug/mL (Not Estab.)
== END ==
PROVIDERS: Internal Medicine Nephrology; Visit Provider Nurse Practitioner Family
DX: N18.3 Chronic kidney disease, stage 3 (moderate) (principal); R82.90 Unspecified abnormal findings in urine
CPT/HCPCS: 36415; 80069; 81001; 82043; 82330; 82570; 82652; 83970; 84155; 85007; 85025; 87086; 87088; 87186

== ENCOUNTER → 2020-01-29 12:40 | Outpatient (POV) | payer MEDICARE, OTHER, SELFPAY | PROVIDERS: PCP Internal Medicine Nephrology; Visit Provider Internal Medicine Nephrology | DX: Z00.00 Encounter for general adult medical examination without abnormal findings (principal) ==

== ENCOUNTER → 2020-02-23 13:39 | Outpatient (CLI) | payer MEDICARE, OTHER, SELFPAY ==
[2020-02-23 14:56] LABS: Anion Gap 20.5 mEq/L (5-15); Blood Urea Nitrogen 18 mg/dl (7-17); Calcium 10.5 mg/dl (8.4-10.2); Carbon Dioxide 26 mmol/L (22.0-30.0); Chloride 87 mmol/L (98-107); Estimated Glomerular Filt Rate 45 ml/min (>60); GFR (African American) 54 ML/MIN (>60); Glucose 333 mg/dl (74-100); Potassium 5.5 mmoL/L (3.5-5.1); Sodium 128 mmol/L (136-145)
== END ==
PROVIDERS: Visit Provider Emergency Medicine
DX: N30.90 Cystitis, unspecified without hematuria (principal); E11.9 Type 2 diabetes mellitus without complications; Z79.84 Long term (current) use of oral hypoglycemic drugs
CPT/HCPCS: 80048; 87086

== ENCOUNTER 2020-06-02 16:48 | Emergency (ER) | payer MEDICARE, OTHER, SELFPAY ==
[2020-06-02] VITALS (17 sets, daily range): BP systolic 141–180; BP diastolic 50–100; PULSE 79–161; RESP 16–29; TEMP 36.6; O2SAT 91–99; BMI 19.7; BMI 23.0
[2020-06-02 17:24] LABS: Appearance,Urine CLEAR (Clear); Bilirubin,Urine Negative (Negative); Blood, Urine TRACE-L (Negative); Color,Urine YELLOW (Yellow); Glucose,Urine (UA) Negative (Negative); Ketones,Urine Negative (Negative); Leukocyte Esterase,Urine 2+ (Negative); Nitrate,Urine Negative (Negative); Protein,Urine TRACE (Negative); Specific Gravity, Urine 1.015 (1.005-1.030); Urobilinogen,Urine 0.2 EU/dl (0.2)
[2020-06-02 17:25] LABS: Microscopic, Urine URINE MICROSCOPIC (MICROSCOPIC)
[2020-06-02 17:30] LABS: Basophils % 0.3 % (0.1-2.0); Eosinophils # 0.1 K/mm3 (0.0-0.4); Eosinophils % 0.9 % (0.1-12.0); Hematocrit 43.6 % (37.0-47.0); Hemoglobin 14.6 g/dL (12.2-16.2); Lymphocytes # 0.6 K/mm3 (0.7-4.5); Lymphocytes % 5.4 % (10-50); Mean Corpuscular HGB Conc 33.6 g/dL (31.8-35.4); Mean Corpuscular Hemoglobin 31.1 pg (27.0-31.2); Mean Corpuscular Volume 92.8 fl (81-99); Mean Platelet Volume 7.9 fl (7.4-10.4); Monocytes # 0.1 K/mm3 (0.1-1.0); Monocytes % 0.9 % (1.7-9.3); Neutrophils # 10.5 K/mm3 (1.8-7.8); Neutrophils % 92.6 % (37.0-80.0); Platelet Count 320 K/mm3 (142-424); Red Cell Distribution Width 14.3 % (11.5-17.5); White Blood Count 11.4 K/mm3 (4.8-10.8)
--- NOTE | 2020-06-02 17:35 | PC.NURSE ---
pt with c/o cough and sob with exertion
--- NOTE | 2020-06-02 17:40 | XR_ITS ---
PROCEDURE: XR CHEST PORTABLE CLINICAL HISTORY: cough Cough, chest pain COMPARISON: No exams were available for comparison FINDINGS: The cardiomediastinal silhouette and pulmonary vascularity are within normal limits. The lungs are clear without infiltrates, suspicious nodules, or pleural effusions. No acute bony abnormalities. IMPRESSION: No acute findings. Dictated by: Dawson Garduno MD 06/02/2020 19:38 Electronically signed by Dawson Garduno MD in [facility] 06/02/2020 19:38
[2020-06-02 17:42] LABS: Chloride 101 mmol/L (98-107)
[2020-06-02 17:43] LABS: Potassium 3.6 mmoL/L (3.5-5.1); Sodium 134 mmol/L (136-145)
[2020-06-02 17:45] LABS: Alanine Aminotransferase 14 U/L (12-78); Aspartate Amino Transferase 23 U/L (14-36); Blood Urea Nitrogen 16 mg/dl (7-17); Creatinine Clearance Estimated 36 mL/min (50-200); Estimated Glomerular Filt Rate 44 ml/min (>60); GFR (African American) 54 ML/MIN (>60)
[2020-06-02 17:46] LABS: Bacteria,Urine 2+ /lpf; Squamous Epithelial Cell,Urine Occasional #/hpf (0-5)
[2020-06-02 17:46] LABS: Albumin Level 4.3 g/dl (3.5-5.0); Albumin/Globulin Ratio 1.4 (1.1-1.8); Alkaline Phosphatase 117 U/L (38-126); Anion Gap 15.6 mEq/L (5-15); Bilirubin,Total 0.7 mg/dl (0.2-1.3); Calcium 9.5 mg/dl (8.4-10.2); Carbon Dioxide 21 mmol/L (22.0-30.0); Globulin 3.1 g/dL (1.3-3.2); Glucose 175 mg/dl (74-100); MANUAL DIFFERENTIAL MANUAL DIFFERENTIAL (MANUAL DIFF); Total Protein,Serum 7.4 g/dl (6.3-8.2)
--- NOTE | 2020-06-02 18:10 | ECG_ITS ---
APPROVED REPORT Exam: Resting ECG HR:114 bpm ECG Measurements Heart Rate 114 AXES ID 146 P 80 QRSd 86 QRS 77 QT 356 T 243 QTc 490 <Conclusion> Sinus tachycardia with premature atrial complexes Marked ST abnormality, possible inferior/lateral subendocardial injury Abnormal ECG Electronically signed by : Misha Roque, 06/04/2020 16:39:39
--- NOTE | 2020-06-02 18:45 | CT_ITS ---
PROCEDURE: CT ABDOMEN PELVIS W CON CLINICAL INDICATION: pain Left flank pain with nausea and vomiting COMPARISON: ABDPELW/O CT ABD PELVIS W/O CONTRAST from 06/19/[address] abdomen pelvis w con from 05/22/2019 CT ABDOMEN PELVIS W CON from 02/20/2020 TECHNIQUE: IV Contrast: 75ML OPTIRAY 350 Oral Contrast None Axial images obtained with sagittal and coronal reformats. All CT scans at the facility use one or more dose reduction, viz: automated exposure control, ma/kV adjustment per patient size (including targeted exams where dose is matched to indication, i.e. head), or iterative reconstruction technique. FINDINGS: LOWER THORAX: No acute finding ABDOMEN & PELVIS: The spleen and pancreas have an unremarkable appearance. Has been a prior cholecystectomy. A low-density areas present in the right hepatic lobe inferiorly measuring 10 mm. This is nonspecific and incompletely evaluated. There is nodularity involving both adrenal glands not significantly changed. There is right renal cortical scarring. There is moderate stranding of the perinephric renal fat on the left the with mild left hydronephrosis and hydroureter. A definite ureteral calculus is not identified. There is a small exophytic cyst along the posterior aspect of the left kidney. Other cortical cyst also noted of the left kidney. No intestinal obstruction or free air. No evidence of appendicitis or diverticulitis. There is a mildly distended urinary bladder. Benign-appearing cystic lesion involves left femoral neck. High-grade stenosis suspected involving the proximal left common iliac artery. 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 Severe inflammatory changes of the left kidney with mild to moderate left hydronephrosis and dilated left ureter. Recently passed stone with pyelonephritis is a consideration. Reflex with pyelonephritis is also consideration. 2. Severe left iliac artery stenosis. 3. Stable adrenal nodules. 4. Resolved emphysematous cystitis Dictated by: Dawson Garduno MD 06/03/2020 09:16 Electronically signed by Dawson Garduno MD in [facility] 06/03/2020 09:16
[2020-06-02 18:48] LABS: Troponin I 0.15 ng/ml (0.00-0.034)
--- NOTE | 2020-06-02 18:57 | [facility].EDGENADL ---
ED Disposition Clinical Impression: Acute mesenteric ischemia, Elevated troponin I level, SIRS (systemic inflammatory response syndrome) Disposition: Xfer Short-Term Hosp Condition on Discharge: Critical Referrals: Ramiro Perez MD [Primary Care Provider] - Forms: Transfer Record - ED - Critical Care Critical Care Time: Yes Attestation: On 06/02/20, the high probability of a clinically significant, sudden or life threatening deterioration of the following system(s) required my full and direct attention, intervention and personal management. The time I documented below is in addition to time spent performing reported procedures but includes the following listed in this critical care notation. Total Critical Care Time: 90 Vital system(s) involved:: Circulatory Failure, Metabolic Failure My critical care processes included: Assessment & monitoring of V/S, Initial and Re-exams, Data Review/Interpretation, Medication Orders and management, Documentation Medical Decision Making - Medical Records Medical records reviewed: Yes: I reviewed the patient's medical records. - Ekv Inquiry Pt receiving controlled substance: No Vital Signs: 06/02/20 16:50 06/02/20 17:30 06/02/20 17:42 Temperature 98 F Temperature Source Oral Pulse Rate [Right Radial] 152 H 87 Respiratory Rate 22 18 Blood Pressure [Right Arm] 150/100 H 157/74 H Blood Pressure Mean [Right Arm] 116 101 Blood Pressure Source [Right Arm] Automatic Cuff Blood Pressure Position [Right Arm] Sitting Supine 02 Sat by Pulse Oximetry 92 L 91 L 96 Oxygen Delivery Method Room Air Room Air Nasal Cannula Oxygen Flow Rate (LPM) 2 06/02/20 18:11 06/02/20 18:30 06/02/20 19:00 Temperature Temperature Source Pulse Rate [Right Radial] 141 H 113 H 114 H Respiratory Rate 18 17 16 Blood Pressure [Right Arm] 167/67 H 166/72 H 162/72 H Blood Pressure Mean [Right Arm] 100 103 102 Blood Pressure Source [Right Arm] Automatic Cuff Automatic Cuff Automatic Cuff Blood Pressure Position [Right Arm] Supine Supine Supine 02 Sat by Pulse Oximetry 95 95 96 Oxygen Delivery Method Room Air Room Air Room Air Oxygen Flow Rate (LPM) 06/02/20 19:30 06/02/20 20:00 06/02/20 20:39 Temperature Temperature Source Pulse Rate [Right Radial] 107 H 118 H 158 H Respiratory Rate 16 18 29 H Blood Pressure [Right Arm] 166/74 H 141/50 H Blood Pressure Mean [Right Arm] 104 80 Blood Pressure Source [Right Arm] Automatic Cuff Automatic Cuff Blood Pressure Position [Right Arm] Supine Supine 02 Sat by Pulse Oximetry 96 98 96 Oxygen Delivery Method Room Air Room Air Nasal Cannula Oxygen Flow Rate (LPM) 3 - Lab Data Lab results reviewed: Yes: I reviewed the patient's lab results. Lab Results 06/02/20 17:17: Urine Color Yellow, Urine Appearance Clear, Urine pH 6.0, Ur Specific [place] 1.015, Urine Protein Trace, Urine Glucose (UA) Negative, Urine Ketones Negative, Urine Blood Trace-l, Urine Nitrate Negative, Urine Bilirubin Negative, Urine Urobilinogen 0.2, Ur Leukocyte Esterase 2+ A, Urine WBC 5-10, Ur Squamous Epith Cells Occasional, Urine Bacteria 2+ 06/02/20 17:22: WBC 11.4 H, RBC 4.70, Hgb 14.6, Hct 43.6, MCV 92.8, MCH 31.1, MCHC 33.6, RDW 14.3, Plt Count 320, MPV 7.9, Neut % (Auto) 92.6 H, Lymph % (Auto) 5.4 L, [place] % (Auto) 0.9 L, Eos % (Auto) 0.9, Baso % (Auto) 0.3, Neut # (Auto) 10.5 H, Lymph # (Auto) 0.6 L, [place] # (Auto) 0.1, Eos # (Auto) 0.1, Baso # (Auto) 0.0, Total Counted 100, Neutrophils % (Manual) 93 H, Lymphocytes % (Manual) 6 L, Monocytes % (Manual) 1 L, Platelet Estimate Normal, RBC Morphology Normal 06/02/20 17:22: Sodium 134 L, Potassium 3.6, Chloride 101, Carbon Dioxide 21 L, Anion Gap 15.6 H, BUN 16, Creatinine 1.20 H, Estimated Creat Clear 36, Estimated GFR 44 L, Est GFR ( Amer) 54 L, Glucose 175 H, Calcium 9.5, Total Bilirubin 0.7, AST 23, ALT 14, Alkaline Phosphatase 117, Total Protein 7.4, Albumin 4.3, Globulin 3.1, Albumin/Globulin Ratio 1.4
--- NOTE | 2020-06-02 19:11 | PC.NURSE ---
pt to ct
[2020-06-02 19:15] LABS: Lactic Acid 1.7 mmol/L (0.7-2.1)
--- NOTE | 2020-06-02 19:23 | PC.NURSE ---
pt back to room
[2020-06-02 19:28] LABS: Lymphocytes % 6 % (10-50); Monocytes % 1 % (2-9); Neutrophils % 93 % (42-76); Platelet Estimate Normal; RBC Morphology Normal; Total Cells Counted 100
--- NOTE | 2020-06-02 19:28 | ECG_ITS ---
APPROVED REPORT Exam: Resting ECG HR:121 bpm ECG Measurements Heart Rate 121 AXES AL 144 P 75 QRSd 78 QRS 74 QT 334 T 214 QTc 474 <Conclusion> Sinus tachycardia with premature atrial complexes Anterior infarct, age undetermined Marked ST abnormality, possible inferior/lateral subendocardial injury Abnormal ECG Electronically signed by : Misha Roque, 06/04/2020 16:35:56
--- NOTE | 2020-06-02 20:38 | PC.NURSE ---
moved patient to room two. pt tachypneic and is tachycardic. incr rr as well. md aware. 2nd iv initiated.
--- NOTE | 2020-06-02 20:39 | ECG_ITS ---
APPROVED REPORT Exam: Resting ECG HR:159 bpm ECG Measurements Heart Rate 159 AXES SC 130 P 67 QRSd 72 QRS 80 QT 234 T 243 QTc 380 <Conclusion> Sinus tachycardia Marked ST abnormality, possible inferior subendocardial injury Poor R Wave Progression Abnormal ECG Electronically signed by : Misha Roque, 06/04/2020 16:34:57
--- NOTE | 2020-06-02 20:40 | PC.NURSE ---
at bedside. IV on left side unsuccessful at this time.
--- NOTE | 2020-06-02 20:42 | INFXCTL.NOTE ---
Respiratory at bedside
--- NOTE | 2020-06-02 20:45 | PC.NURSE ---
2044 ABGs obtained at this time. second IV access attempted by NELSON Roberson
--- NOTE | 2020-06-02 20:47 | PC.NURSE ---
20g in right hand obtained by NELSON Roberson vitals at this time 166/84 manually 151HR 88% on 2L NC RR 25 pt O2 increased to 5L at this time. O2 improved to 94%
[2020-06-02 20:49] LABS: ABG HCO3 11.1 mmhg (22.0-26.0); ABG Oxygen Saturation 85 % (90-100); ABG PCO2 28.9 mmhg (35.0-45.0); ABG PO2 58.6 mmhg (80-100)
[2020-06-02 20:50] LABS: Allen's Test Patient Unable; Oxygen 3.5 LPM %; Source Left Radial
--- NOTE | 2020-06-02 21:04 | PC.NURSE ---
on the phone with [facility] for transfer
--- NOTE | 2020-06-02 21:06 | PC.NURSE ---
on phone with dr. york at this time
--- NOTE | 2020-06-02 21:07 | PC.NURSE ---
on phone with dr ramirez
--- NOTE | 2020-06-02 21:07 | PC.NURSE ---
awaiting for [employer] to call back after weather check
== END 2020-06-02 22:14 | disposition short-term general hospital (02) ==
PROVIDERS: Emergency Provider Emergency Medicine; PCP Emergency Medicine
DX: K55.059 Acute (reversible) ischemia of intestine, part and extent unspecified (principal); R79.89 Other specified abnormal findings of blood chemistry; R65.10 Systemic inflammatory response syndrome (SIRS) of non-infectious origin without acute organ dysfunction; F17.210 Nicotine dependence, cigarettes, uncomplicated; E11.65 Type 2 diabetes mellitus with hyperglycemia; E78.5 Hyperlipidemia, unspecified; I10 Essential (primary) hypertension; Z88.6 Allergy status to analgesic agent; Z88.8 Allergy status to other drugs, medicaments and biological substances; Z79.899 Other long term (current) drug therapy
CPT/HCPCS: 36415; 71045; 74177; 80053; 81001; 82803; 83605; 84484; 85007; 85025; 87086; 87088; 87186; 93005; 96365; 96366; 96367; 96375; 96376; 99284; 99285; J1335; J2405; Q9967